=== PATIENT | male | born 1945 | race Caucasian/White ===

== ENCOUNTER → 2016-09-09 | Outpatient (CLI) | payer MEDICARE, MEDICAID ==
[2016-09-09 17:09] LABS: Basophils % (A) 1 %; CH 31.6; CHCM 35.2; Eosinophils # (A) 0.2 k/uL (0-0.7); Eosinophils % (A) 3 %; HCT 47.1 % (39.0-53.0); HDW 2.84; HGB 16.5 gm/dL (13.0-17.5); Luc # (Auto) 0.18; Luc % (Auto) 2; Lymphocytes # (A) 2.6 k/uL (1.0-4.8); Lymphocytes % (A) 35 %; MCH 31.6 pg (25.0-35.0); MCV 90.3 fL (80.0-100.0); Mean Platelet Volume 6.7; Monocytes # (A) 0.5 k/uL (0-1.0); Monocytes % (A) 6 %; Neutrophils % (A) 54 %; RBC 5.22 m/uL (4.30-5.90); RDW 13.9 % (11.5-15.5); WBC 7.5 k/uL (3.8-10.6); WBC (Perox) 7.53
[2016-09-09 17:24] LABS: ALT 47 U/L (21-72); AST 31 U/L (17-59); Alkaline Phosphatase 58 U/L (38-126); Anion Gap 11 mmol/L; Blood Urea Nitrogen 20 mg/dL (9-20); Calcium 9.8 mg/dL (8.4-10.2); Carbon Dioxide 26 mmol/L (22-30); Chloride 105 mmol/L (98-107); Cholesterol 157 mg/dL (<200); Glucose 89 mg/dL (74-99); HDL Cholesterol 81 mg/dL (40-60); Non-African American GFR(MDRD) >60 (>60 ml/min/1.73 sqM); Potassium 4.1 mmol/L (3.5-5.1); Sodium 142 mmol/L (137-145); Total Bilirubin 1.2 mg/dL (0.2-1.3); Total Protein 7.1 g/dL (6.3-8.2); Triglycerides 63 mg/dL (<150); Uric Acid 5.3 mg/dL (3.5-8.5)
== END | disposition home or self-care (01) ==
LOC: LABWHC1 16:28
PROVIDERS: ATTEND Internal Medicine
DX: E78.5 Hyperlipidemia, unspecified (principal); I10 Essential (primary) hypertension; M10.9 Gout, unspecified
CPT/HCPCS: 84439; 80061; 80053; 84443; 84550; 85025; 36415; G0103; 99214

== ENCOUNTER → 2016-12-24 | Outpatient (CLI) | payer MEDICARE, MEDICAID ==
[2016-12-24 15:49] LABS: Basophils # (A) 0.1 k/uL (0-0.2); Basophils % (A) 1 %; Eosinophils # (A) 0.2 k/uL (0-0.7); Eosinophils % (A) 3 %; HCT 48.7 % (39.0-53.0); HDW 2.61; HGB 16.5 gm/dL (13.0-17.5); Luc # (Auto) 0.12; Luc % (Auto) 2; Lymphocytes # (A) 2.5 k/uL (1.0-4.8); Lymphocytes % (A) 31 %; MCH 31.2 pg (25.0-35.0); MCHC 33.9 g/dL (31.0-37.0); MCV 91.9 fL (80.0-100.0); Mean Platelet Volume 7.3; Monocytes # (A) 0.5 k/uL (0-1.0); Monocytes % (A) 6 %; Neutrophils # (A) 4.8 k/uL (1.3-7.7); Neutrophils % (A) 59 %; RDW 14.5 % (11.5-15.5); WBC 8.1 k/uL (3.8-10.6); WBC (Perox) 8.11
[2016-12-24 16:08] LABS: ALT 52 U/L (21-72); AST 30 U/L (17-59); Alkaline Phosphatase 69 U/L (38-126); Amylase 42 U/L (30-110); Anion Gap 14 mmol/L; Blood Urea Nitrogen 29 mg/dL (9-20); Calcium 10.2 mg/dL (8.4-10.2); Carbon Dioxide 23 mmol/L (22-30); Chloride 106 mmol/L (98-107); Creatine Kinase 181 U/L (55-170); Glucose 93 mg/dL (74-99); Non-African American GFR(MDRD) >60 (>60 ml/min/1.73 sqM); Potassium 4.1 mmol/L (3.5-5.1); Sodium 143 mmol/L (137-145); Total Protein 7.6 g/dL (6.3-8.2)
[2016-12-24 16:18] LABS: Troponin I <0.012 ng/mL (0.000-0.034)
[2016-12-24 16:20] LABS: Creatine Kinase MB 2.9 ng/mL (0.0-2.4)
== END | disposition home or self-care (01) ==
LOC: LABWHC1 15:27
PROVIDERS: ATTEND Internal Medicine
DX: R07.9 Chest pain, unspecified (principal); R10.9 Unspecified abdominal pain
CPT/HCPCS: 36415; 80053; 82150; 82550; 82553; 83690; 84484; 85025

== ENCOUNTER 2017-01-07 08:34 | Day surgery (SDC) | payer MEDICARE, MEDICAID ==
[2017-01-06 11:24] VITALS: BMI 28.8
[~2017-01-07 08:34] MED LIST: LACTATED RINGERS 1,000 ML IV SCH
[2017-01-07 09:10] VITALS: RESP 16; TEMP 97.7
[2017-01-07] MEDS ORDERED: LIDOCAINE 1% 20 ML VIAL (10MG/ML) FOR IV START INTRADERMA ONE (09:22)
[2017-01-07] MEDS ORDERED: PROPOFOL 10 MG/ML 20 ML VIAL IV ONE (09:33)
[2017-01-07] MEDS ORDERED: LIDOCAINE 1% INJ 10MG/ML (20 ML MDV) ONE (09:33)
--- NOTE | 2017-01-07 10:43 | P.PCN ---
Date of Procedure: 01/07/17 Preoperative Diagnosis: Postoperative Diagnosis: Procedure(s) Performed: Procedure: Esophagogastroduodenoscopy and biopsy. Preoperative diagnosis: Chronic reflux symptoms and abdominal pressure. Postoperative diagnosis: 1. Small sliding hiatal hernia with no obvious esophagitis or complicated reflux disease. 2. Mild antral gastritis with a few diminutive polyps in the gastric body consistent with hyperplastic polyps. 3. No duodenal ulcers or gastric outlet obstruction. 4. Biopsies obtained from the duodenum, antrum, gastric body polyps and esophagus. Preparation and sedation: Was provided by anesthesia. Brief clinical history: The patient is a 71-year-old male who is referred for this evaluation because of epigastric discomfort and reflux that has not responded to acid suppressive therapy. He has also been having, for the last year, abdominal discomfort, bloating and pressure sensation. No weight loss, bleeding or other alarm symptoms. The patient had colonoscopy with me 6 or 7 years ago. This evaluation is to assess for peptic ulcer disease, complicated reflux disease or other pathology. Procedure: With the patient on his left lateral decubitus position and after informed consent and adequate sedation, I passed the Olympus-GIF 160 video upper endoscope through the cricopharyngeus down the esophagus. GE junction was around 38 cm from the incisors and there was a small sliding hiatal hernia between 1-2 cm. The esophagus did not show any erosions, ulcers, strictures or Pierson's esophagus. The endoscope was then passed into the stomach which was insufflated with air and inspected in detail including the retroflexion in the cardia. There was a diminutive polyp scattered in the gastric body consistent with regenerative/hyperplastic polyps. There was some mottling and erythema in the antrum but no ulcers or erosions. Pyloric channel, duodenal bulb, post bulbar area and descending duodenum appeared within normal limits. I obtained biopsies from the duodenum, antrum, gastric body polyps and esophagus before the endoscope was withdrawn. The patient tolerated the procedure well. Plan: The patient was reassured. Will await biopsy results. He will follow up with you as planned and further plans can be made based on his course and biopsy results. I will be happy to see in the office if his symptoms persist. Implants: Indications for Procedure: Operative Findings: Description of Procedure:
[2017-01-07 10:51] VITALS: BP 115/66; PULSE 60
== END 2017-01-07 10:52 | disposition home or self-care (01) ==
LOC: ORWHC2ENDO 08:34
DX: K29.50 Unspecified chronic gastritis without bleeding (principal); K44.9 Diaphragmatic hernia without obstruction or gangrene; K31.7 Polyp of stomach and duodenum; K21.9 Gastro-esophageal reflux disease without esophagitis; I10 Essential (primary) hypertension; E78.5 Hyperlipidemia, unspecified; J45.909 Unspecified asthma, uncomplicated; Z79.51 Long term (current) use of inhaled steroids; Z79.899 Other long term (current) drug therapy; Z91.041 Radiographic dye allergy status
CPT/HCPCS: 88305; 88342; 43239; J2001; J2704

== ENCOUNTER → 2017-11-30 | Outpatient (CLI) | payer MEDICARE, MEDICAID ==
[2017-11-30 10:14] LABS: Basophils % (A) 0 %; Eosinophils # (A) 0.2 k/uL (0-0.7); Eosinophils % (A) 4 %; HCT 46.7 % (39.0-53.0); HGB 16.1 gm/dL (13.0-17.5); Lymphocytes # (A) 2.4 k/uL (1.0-4.8); Lymphocytes % (A) 34 %; MCH 30.9 pg (25.0-35.0); MCHC 34.5 g/dL (31.0-37.0); MCV 89.6 fL (80.0-100.0); Monocytes # (A) 0.5 k/uL (0-1.0); Monocytes % (A) 7 %; Neutrophils # (A) 3.7 k/uL (1.3-7.7); Neutrophils % (A) 54 %; Platelet Count 225 k/uL (150-450); RBC 5.21 m/uL (4.30-5.90); RDW 13.8 % (11.5-15.5); WBC 6.9 k/uL (3.8-10.6)
[2017-11-30 12:03] LABS: Albumin 4.5 g/dL (3.5-5.0); Calcium 9.8 mg/dL (8.4-10.2); Potassium 4.4 mmol/L (3.5-5.1); Total Bilirubin 0.8 mg/dL (0.2-1.3); Total Protein 7.2 g/dL (6.3-8.2)
[2017-11-30 12:19] LABS: T4, Free (Free Thyroxine) 0.91 ng/dL (0.78-2.19)
[2017-11-30 12:33] LABS: PSA Annual Screen 2.27 ng/mL (0.00-4.00)
== END | disposition home or self-care (01) ==
LOC: LABWHC1 09:49
PROVIDERS: ATTEND Internal Medicine
DX: Z00.00 Encounter for general adult medical examination without abnormal findings (principal); E55.9 Vitamin D deficiency, unspecified; Z12.5 Encounter for screening for malignant neoplasm of prostate
CPT/HCPCS: 84439; 80061; 80053; 84443; 85025; 82306; 36415; G0103

== ENCOUNTER → 2018-11-07 | Outpatient (CLI) | payer MEDICARE, MEDICAID ==
[2018-11-07 09:34] LABS: Basophils % (A) 1 %; Eosinophils # (A) 0.2 k/uL (0-0.7); Eosinophils % (A) 3 %; HCT 48.2 % (39.0-53.0); HGB 16.1 gm/dL (13.0-17.5); Lymphocytes # (A) 2.5 k/uL (1.0-4.8); Lymphocytes % (A) 36 %; MCH 30.1 pg (25.0-35.0); MCHC 33.4 g/dL (31.0-37.0); MCV 90.2 fL (80.0-100.0); Monocytes # (A) 0.4 k/uL (0-1.0); Monocytes % (A) 6 %; Neutrophils # (A) 3.6 k/uL (1.3-7.7); Neutrophils % (A) 52 %; Platelet Count 254 k/uL (150-450); RBC 5.35 m/uL (4.30-5.90); WBC 6.9 k/uL (3.8-10.6)
[2018-11-07 16:18] LABS: African American GFR (CKD) 70.1 (60.0-200.0); Albumin 4.8 g/dL (3.80-4.90); Albumin/Globulin Ratio 2.4 (1.60-3.17); Anion Gap 7.5 mmol/L (4.00-12.00); BUN/Creat Ratio 23.33 Ratio (12.00-20.00); Calcium 10.3 mg/dL (8.7-10.3); Carbon Dioxide 27.5 mmol/L (21.6-31.8); LDL Cholesterol,Calculated 97.4 mg/dL (0.0-131.0); Potassium 4.1 mmol/L (3.5-5.5); Total Bilirubin 1.1 mg/dL (0.2-1.2); Total Protein 6.8 g/dL (6.2-8.2); Uric Acid 5.6 mg/dL (3.7-8.7); VLDL Calculation 17.6 mg/dL (5.00-40.00)
== END | disposition home or self-care (01) ==
LOC: LABWHC1 08:11
PROVIDERS: ATTEND Internal Medicine
DX: Z00.00 Encounter for general adult medical examination without abnormal findings (principal); E78.5 Hyperlipidemia, unspecified; I10 Essential (primary) hypertension; Z12.5 Encounter for screening for malignant neoplasm of prostate
CPT/HCPCS: 84439; 80061; 80053; 84443; 84550; 85025; 36415; G0103

== ENCOUNTER → 2018-11-07 | Outpatient (CLI) | payer MEDICARE, MEDICAID | END | disposition home or self-care (01) | LOC: LABPAT 08:08 | PROVIDERS: ATTEND Orthopaedic Surgery | DX: Z53.9 Procedure and treatment not carried out, unspecified reason (principal) ==

== ENCOUNTER 2018-12-01 10:42 | Day surgery (SDC) | payer MEDICARE, MEDICAID ==
[2018-11-29 14:38] VITALS: BMI 28.0
--- NOTE | 2018-11-30 17:32 | HP ---
HISTORY AND PHYSICAL REASON FOR ADMISSION: Surgery scheduled for 12/01/2018 HISTORY: Raj Lainez is a 73-year-old patient seen with progressive left knee pain. Treatment options were discussed with him. He elected to proceed with left knee arthroscopy. Consent was obtained. PAST MEDICAL HISTORY: Asthma, hypertension, hyperlipidemia and gout. PAST SURGICAL HISTORY: Herniorrhaphy. MEDICATIONS: Allopurinol, pantoprazole, Advair, amlodipine, Losartan, lovastatin. ALLERGIES: IODINE. SOCIAL HISTORY: Denies current tobacco use. PHYSICAL EXAMINATION: Evaluation of the left knee is range of motion is 0 to 130 degrees. There is a mild effusion. There is tenderness along the medial and lateral joint lines. Positive medial Michael's. Positive lateral Michael's. Ligaments stable. Hip rotation without pain. Distal neurovascular exam intact. RADIOGRAPHS: Radiographs of the left knee revealed moderate osteoarthritic changes. IMPRESSION: 1. Internal derangement, left knee with meniscal tear. 2. Left knee osteoarthritis. 3. Hypertension. 4. Hyperlipidemia. PLAN: Left knee arthroscopy with partial meniscectomy and debridement. Surgery scheduled for 12/01/2018. MMODL / IJN: [id number] /
[~2018-12-01 10:42] MED LIST changes: +LIDOCAINE 1% 20 ML VIAL (10MG/ML) FOR IV START INTRADERMA PRN; +ceFAZolin IN SWFI 2 GM/20 ML SYRINGE IVP ONE
[2018-12-01] MEDS: ONDANSETRON 4 MG/2 ML VIAL IVP PRN ×2 (11:11→14:00)
[2018-12-01] MEDS ORDERED: DEXAMETHASONE SOD PHOSPHATE 10 MG/ML 1 ML VIAL IV ONE (11:19)
[2018-12-01] MEDS ORDERED: MIDAZOLAM (PF) 2 MG/2 ML VIAL IV ONE (11:42)
[2018-12-01] MEDS ORDERED: PROPOFOL 10 MG/ML 20 ML VIAL IV ONE (13:00)
[2018-12-01] MEDS ORDERED: fentaNYL (PF) 50 MCG/ML 2 ML AMP ONE (13:00)
[2018-12-01] MEDS ORDERED: HYDROmorphone (PF) 1 MG/ML ONE (13:00)
[2018-12-01] MEDS ORDERED: LIDOCAINE 1% INJ 10MG/ML (20 ML MDV) ONE (13:00)
[2018-12-01] MEDS ORDERED: SUCCINYLCHOLINE CHLORIDE 100 MG/5 ML SYR IV ONE (13:00)
[2018-12-01] MEDS ORDERED: BUPIVACAINE (PF) 0.25% 30 ML VIAL INTRAARTIC ONE (13:31)
[2018-12-01 13:55] VITALS: TEMP 98.3
--- NOTE | 2018-12-01 13:59 | P.OP ---
Date of Procedure: 12/01/18 Preoperative Diagnosis: Internal derangement left knee Postoperative Diagnosis: 1. Tear medial meniscus left knee 2. Grade 4 chondromalacia medial femoral condyle left knee 3. Reactive synovitis medial, lateral and suprapatellar compartments left knee Procedure(s) Performed: 1. Arthroscopic partial medial meniscectomy left knee 2. Arthroscopic chondroplasty medial femoral condyle left knee 3. Arthroscopic partial synovectomy medial, lateral and suprapatellar compartments left knee Anesthesia: NATHALIAA, local Surgeon: Hitesh Huerta Estimated Blood Loss (ml): 7 Pathology: none sent Condition: stable Disposition: PACU Indications for Procedure: 73-year-old patient seen with progressive left knee pain. After treatment options were discussed with him, he elected to proceed with arthroscopy. Operative Findings: see description of procedure Description of Procedure: Patient was taken to the operative suite. Patient underwent a general anesthetic by the department of anesthesia. Patient was given preoperative antibiotics. The left lower extremity was placed in a well-padded arthroscopic leg oliva. The left leg was prepped and draped in the normal sterile orthopedic fashion. A lateral parapatellar and suprapatellar incision was made. Trochars were inserted. Arthroscopy was initiated. Suprapatellar pouch revealed diffuse thick reactive synovitis. The patellofemoral joint appeared to articulate congruently. There was grade 1 chondromalacia of the patellofemoral joint. The scope was guided into the medial gutter. No loose bodies or plica were identified. The scope was then guided into the medial compartment. A medial parapatellar incision was made. Trocar inserted followed by probe. There was a radial tear posterior horn medial meniscus. There were grade 4 chondromalacia changes of the femoral condyle and tibial plateau with areas of exposed bone involving both the medial femoral condyle and tibial plateau. There was thick reactive synovitis anteriorly. I performed a partial medial meniscectomy down to stable tissue. I performed a chondroplasty of the medial femoral condyle. I performed a partial synovectomy decompressing the reactive synovitis. The residual meniscus was stable. There was good decompression of the synovitis. Scope and probe were then guided into the intercondylar notch. Cruciates were identified, probed and found to be stable. The scope and probe were then guided into lateral compartment. There was some mild superficial fraying midbody lateral meniscus. There were grade 1, she changes lateral compartment. There was thick reactive synovitis anteriorly. I performed a partial synovectomy decompressing reactive synovitis. I debrided the mild fraying of the lateral meniscus. There was good decompression of synovitis. The scope was in guided back into the suprapatellar compartment. I introduced a motorized shaver into the super compartment. I debrided some piecemeal fragments of meniscus I encountered. I performed a partial synovectomy decompressing the reactive synovitis. The shaver was removed. I took one more look on the entire knee, no residual debris. Instruments were now removed from the joint. The joint was infiltrated with .25% Marcaine. Steri-Strips were applied to the portal sites. Sterile dressings were applied. The patient was placed into a RUPINDER hose. No tourniquet was utilized. The patient was awakened, transferred to a bed and taken to recovery stable satisfactory condition.
[2018-12-01] MEDS: HYDROmorphone 0.5 MG/0.5 ML SYRINGE IVP PRN ×4 (14:00→14:21)
[2018-12-01 15:43] VITALS: RESP 18
[2018-12-01 16:09] VITALS: BP 118/65; PULSE 86
== END 2018-12-01 17:05 | disposition home or self-care (01) ==
LOC: OR 10:42
PROVIDERS: ATTEND Orthopaedic Surgery
DX: S83.242A Other tear of medial meniscus, current injury, left knee, initial encounter (principal); X58.XXXA Exposure to other specified factors, initial encounter; M94.262 Chondromalacia, left knee; M65.862 Other synovitis and tenosynovitis, left lower leg; J45.909 Unspecified asthma, uncomplicated; I10 Essential (primary) hypertension; K21.9 Gastro-esophageal reflux disease without esophagitis; E78.5 Hyperlipidemia, unspecified; M10.9 Gout, unspecified; Z79.51 Long term (current) use of inhaled steroids; Z79.899 Other long term (current) drug therapy; Z91.048 Other nonmedicinal substance allergy status
CPT/HCPCS: 29881; 29876; J1100; J2405; J2001; J3010; J1170 ×2; J0330; J2704; J0690; J2250

== ENCOUNTER → 2019-01-24 | Outpatient (CLI) | payer MEDICARE, MEDICAID ==
[2019-01-24 14:35] LABS: INR 0.9 (<1.2); Partial Thromboplastin Time 25.6 sec (22.0-30.0); Prothrombin Time 9.9 sec (9.0-12.0)
[2019-01-24 14:36] LABS: Basophils # (A) 0.1 k/uL (0-0.2); Basophils % (A) 1 %; Eosinophils # (A) 0.2 k/uL (0-0.7); Eosinophils % (A) 2 %; HCT 48.7 % (39.0-53.0); HGB 16.5 gm/dL (13.0-17.5); Lymphocytes # (A) 2.6 k/uL (1.0-4.8); Lymphocytes % (A) 28 %; MCHC 33.9 g/dL (31.0-37.0); MCV 91.5 fL (80.0-100.0); Mean Platelet Volume 7.1; Monocytes # (A) 0.5 k/uL (0-1.0); Monocytes % (A) 6 %; Neutrophils # (A) 5.8 k/uL (1.3-7.7); Neutrophils % (A) 62 %; Platelet Count 277 k/uL (150-450); RBC 5.32 m/uL (4.30-5.90); RDW 15.7 % (11.5-15.5); WBC 9.3 k/uL (3.8-10.6)
[2019-01-24 14:38] LABS: Potassium 3.9 mmol/L (3.5-5.1)
== END | disposition home or self-care (01) ==
LOC: LABPAT 13:36
PROVIDERS: ATTEND Orthopaedic Surgery
DX: Z01.812 Encounter for preprocedural laboratory examination (principal); M17.12 Unilateral primary osteoarthritis, left knee
CPT/HCPCS: 36415; 80051; 85025; 85610; 85730; 87070

== ENCOUNTER 2019-01-30 08:31 | Day surgery (SDC) | payer MEDICARE, MEDICAID ==
[2019-01-25 11:45] VITALS: BMI 29.5
--- NOTE | 2019-01-29 14:30 | HP ---
HISTORY AND PHYSICAL REASON FOR ADMISSION: Surgery scheduled for 01/30/2019 Raj Lainez is a 73-year-old patient seen with symptomatic left knee osteoarthritis. After treatment options were discussed with him, he elected to proceed with left total knee arthroplasty. Consent was obtained. Cardiac clearance was obtained by Dr. Urbina. Medical clearance had been provided by Dr. Varela. PAST MEDICAL HISTORY: Hypertension, hyperlipidemia, asthma, gastroesophageal reflux disease. PAST SURGICAL HISTORY: Left knee arthroscopy, herniorrhaphy. MEDICATIONS: Advair, amlodipine, losartan, lovastatin. ALLERGIES: IODINE. SOCIAL HISTORY: He denies tobacco use. PHYSICAL EXAMINATION: Evaluation of the left knee: His range of motion is -3 to 115. There is a moderate effusion present. There is crepitus along the medial and patellofemoral compartments range of motion. Ligaments are stable. Hip rotation is without pain. His distal neurovascular exam is intact. RADIOGRAPHS: Of his left knee reveal severe medial compartment osteoarthritis. IMPRESSION: 1. Left knee osteoarthritis. 2. Hyperlipidemia. 3. Hypertension. 4. Asthma. PLAN: Left total knee arthroplasty. Surgery scheduled for 01/30/2019. MMODL / IJN: [id number] /
[~2019-01-30 08:31] MED LIST changes: +ACETAMINOPHEN TAB 500 MG TAB PO ONE; +DEXAMETHASONE SOD PHOSPHATE 10 MG/ML 1 ML VIAL IV ONE; +HYDROmorphone 0.5 MG/0.5 ML SYRINGE IVP PRN; -LACTATED RINGERS 1,000 ML IV SCH; -LIDOCAINE 1% 20 ML VIAL (10MG/ML) FOR IV START INTRADERMA PRN; +MELOXICAM 7.5 MG TAB PO ONE; +MIDAZOLAM 2 MG/2 ML VIAL IV PRN; +ONDANSETRON 4 MG/2 ML VIAL IVP ONE; +ROPIVACAINE 246.25 MG, EPINEPHrine 0.5 MG, KETOROLAC 30 MG, cloNIDine HCL/PF 80 MCG, WA... MISCELLANE ONE; +TRANEXAMIC ACID 1,000 MG in SODIUM CHLORIDE 0.9% 100 ML IVPB ONE; -ceFAZolin IN SWFI 2 GM/20 ML SYRINGE IVP ONE
[2019-01-30] MEDS: LACTATED RINGERS 1,000 ML IV SCH ×2 (09:29→16:57)
[2019-01-30] MEDS ORDERED: ROPIVACAINE 0.2%-NS ON-Q PUMP 1,090 MG, EMPTY PAIN BALL 1 EACH MISCELLANE PRN (09:33)
--- NOTE | 2019-01-30 09:35 | P.ANPRN ---
Procedure Note - Anesthesia - Nerve Block Performed Left Adductor Canal Infusion Time Out Performed: Yes Date of Procedure: 01/30/19 Procedure Start Time: : Procedure Stop Time: : Location of Patient Procedure: PreOp Indication: Acute Post-Operative Pain, Requested by Surgeon Sedation Type: Sedate with meaningful contact maintained Preparation: Sterile Prep, Sterile Dressing Position: Supine Catheter: Indwelling Needle Types: Pajunk Needle Gauge: 21 Ultrasound used to visualize needle placement: Yes Injectate: 0.5% Ropivacaine (see comment for volume) (ropi .5% 20cc) Blood Aspirated: No Pain Paresthesia on Injection Noted: No Resistance on Injection: Normal Image Stored and Saved: Yes Events: Uneventful and Well Tolerated
[2019-01-30] MEDS ORDERED: fentaNYL (PF) 50 MCG/ML 2 ML AMP ONE (09:42)
[2019-01-30] MEDS: fentaNYL (PF) 50 MCG/ML 2 ML AMP IV ONE ×5 (09:42→14:10)
[2019-01-30] MEDS ORDERED: MIDAZOLAM 2 MG/2 ML VIAL ONE (09:42)
[2019-01-30] MEDS ORDERED: TRANEXAMIC ACID 1,000 MG/10 ML VIAL ONE (09:42)
[2019-01-30] MEDS ORDERED: PROPOFOL 10 MG/ML 20 ML VIAL IV ONE (09:42)
[2019-01-30] MEDS ORDERED: SODIUM CHLORIDE 0.9% 100 ML BAG ONE (09:42)
[2019-01-30] MEDS ORDERED: ceFAZolin 3,000 MG in SODIUM CHLORIDE 0.9% IRRIGATIO 3,000 ML IRRIGATION ONE (09:47)
[2019-01-30] MEDS ORDERED: LACTATED RINGERS 1,000 ML IV ONE (11:23)
[2019-01-30] MEDS ORDERED: HYDROmorphone 1 MG/ML 1 ML SYRINGE IVP PRN (11:42)
[2019-01-30] MEDS ORDERED: HYDROcodone/APAP 5-325MG 1 EACH TAB PO PRN (11:42)
[2019-01-30] MEDS ORDERED: NALOXONE 0.4 MG/ML 1 ML VIAL IV PRN (11:42)
[2019-01-30] MEDS ORDERED: traMADol 50 MG TAB PO PRN (11:42)
[2019-01-30] MEDS ORDERED: ONDANSETRON 4 MG/2 ML VIAL IVP PRN (11:42)
[2019-01-30] MEDS ORDERED: HYDROmorphone 0.5 MG/0.5 ML SYRINGE IVP PRN ×2 (11:42)
--- NOTE | 2019-01-30 11:42 | P.OP ---
Date of Procedure: 01/30/19 Preoperative Diagnosis: Left knee osteoarthritis Postoperative Diagnosis: Left knee osteoarthritis Procedure(s) Performed: Left total knee arthroplasty Implants: 1. Depuy attune size 7 left cruciate-retaining cemented femur 2. Depuy attune size 7 fixed bearing cemented tibial baseplate 3. Depuy attune size 7 fixed bearing 10 mm polyethylene tibial insert 4. Depuy attune 38 mm all polyethylene cemented patella Anesthesia: regional (Adductor canal catheter), local, spinal Surgeon: Hitesh Huerta Estimated Blood Loss (ml): 35 Pathology: other (Bone) Condition: stable Disposition: PACU Indications for Procedure: 73-year-old patient seen with symptomatic left knee osteoarthritis. After treatment options were discussed, he elected to proceed with total knee arthroplasty. Operative Findings: See description of procedure Description of Procedure: Patient was taken to the operative suite after having an adductor canal catheter placed by the department of anesthesia for postoperative pain management. Patient underwent a spinal anesthetic by the department of anesthesia. Patient was given preoperative IV intake antibiotics and TXA. A well-padded tourniquet was placed about the left lower extremity. The lower extremity was then prepped and draped in the normal sterile orthopedic fashion. The extremity was elevated, a tourniquet was insufflated to 300. A standard anterior incision was made sharply through skin. Dissection was taken down through the subcutaneous soft tissues down to the extensor mechanism. A medial arthrotomy was performed, patella was everted and knee was flexed. There was advanced osteoarthritis noted. I introduced my distal intramedullary femoral drill. I then introduced the distal femoral cutting jig. My medical research assistant secured the cutting jig with 2 pins. I held retractors in position while my medical research assistant performed the distal femoral resection through the guide area we now removed her distal femoral cutting guide. We now placed our 4-in-1 femoral cutting block and positioned and it was secured with 2 pins by medical research assistant while I held the block in position. The distal femoral finishing was now completed. A proximal tibial cutting guide was positioned. I held the guide in the appropriate position with both hands well Gomez AGUIRRE inserted stabilizing pins into the guide. Proximal tibial cut was made. We now placed a trial femoral component into position, along with an appropriate size tibial tray and insert. We now took the knee through range of motion and had full extension good flexion and good overall soft tissue balance noted. The patella was everted and stabilized with 2 towel clips held by my medical research assistant while I performed a flush with patellar quad tendon utilizing a fresh sawblade. We templated the patella, appropriate drill holes were made. An appropriate trial patella was positioned, knee was taken through full range of motion with the patella tracking very nicely. The trial patella was removed. Drill holes were made through the femoral component. All trial components were removed after marking off the appropriate rotation of the tibia. Retractors were now positioned along the proximal tibia. An appropriate keel punch was made with the appropriate size tibial guide by myself on ( assisted by holding retractors. At this point appropriate size implants were chosen and opened. The joint was irrigated copiously with pulse lavage mechanical irrigation. The posterior capsule was infiltrated with local analgesic. The wound was irrigated with pulse lavage mechanical irrigation. We mixed antibiotic me thylmethacrylate. We placed the knee into flexion. We placed multiple retractors assisted by Gomez AGUIRRE to expose the proximal tibia. Once the methyl methacrylate was ready, the tibial component was cemented into place removing any excess methylmethacrylate form by both myself and my medical research assistant. The femoral component was cemented into place removing the removing any excess methylmethacrylate performed by both myself and my medical research assistant. We then inserted the appropriate size polyethylene tibial insert. We made sure that it was locked into position. We took the knee into full extension, and then back in a flexion making sure we had removed any excess methylmethacrylate. The patellar component was then cemented down and secured with clamp. Excess methylmethacrylate removed. We kept the knee in full extension, patellar clamp in position until methylmethacrylate had hardened. Once it had hardened the patellar clamp was removed. The knee was taken through full range of motion. T he patella tracked nicely. There was good soft tissue balancing. The tourniquet was now released. Additional hemostasis was achieved via electrocautery. A second gram of TXA was given. The wound again was irrigated with pulse lavage mechanical irrigation. The superficial soft tissues were infiltrated local analgesic. The extensor mechanism was repaired with Vicryl. We checked the repair with range of motion and it was stable. The subcutaneous soft tissues were repaired with Vicryl in layers. The skin was approximated with pernio/Dermabond. Sterile dressings were applied followed by loose web roll and Antonino bandage. The patient was transferred to a bed, and taken to recovery in stable and satisfactory condition.
[2019-01-30] MEDS: MEPERIDINE 50 MG/ML SYRINGE IVP ONE ×2 (12:12→12:20)
--- NOTE | 2019-01-30 12:15 | XR ---
EXAMINATION TYPE: XR knee limited LT DATE OF EXAM: 01/30/2019 COMPARISON: NONE TECHNIQUE: Two views submitted HISTORY: Post op FINDINGS: There is a prosthetic knee in near anatomic alignment. There is soft tissue edema and emphysema. IMPRESSION: 1. Postoperative change. Appears in near-anatomic alignment
[2019-01-30] MEDS: diphenhydrAMINE 50 MG/ML 1 ML VIAL IVP ONE ×2 (12:30→13:17)
[2019-01-30] MEDS ORDERED: HYDROcodone/APAP 7.5-325MG 1 EACH TAB PO PRN (15:09)
--- NOTE | 2019-01-30 17:06 | P.CNPUL ---
History of Present Illness Consult date: 01/30/19 Reason for consult: asthma, other (Patient is status post left total knee arthroplasty, history of asthma and hypertension.) Chief complaint: Left knee pain History of present illness: This is a 73-year-old white male, familiar to my service, patient is known to have history of mild intermittent asthma, hypertension, dyslipidemia, and history of osteoarthritis. Patient has been complaining of left knee pain and discomfort for a long time. Seen recently by Dr. Huerta, and he was advised to undergo left total knee arthroplasty. The surgery was done today, and postoperatively I was asked to see him on consultation. Patient was cleared by me prior to his surgery he was also cleared by cardiology. After surgery the patient seems to be quite asymptomatic except for postoperative pain. Denies any cough, no wheezing, no shortness of breath, no chest pain. No nausea no vomiting no abdominal pain. Previous echocardiogram in the last 2 years showed mild mitral regurgitation and mild tricuspid regurgitation, and he had normal ejection fraction. Recent EKG at the marketing services coordinator's office showed a right bundle branch block and left anterior fascicular block, sinus rhythm. Review of Systems Constitutional: No fever no chills no weight loss. Cardiac: No chest pain no palpitations no syncope no diaphoresis. Pulmonary: No shortness of breath cough or wheezing rarely uses rescue inhaler patient is maintained on Advair. GI: Denies any nausea vomiting abdominal pain melena or hematemesis Genitourinary denies any dysuria frequency urgency or hematuria. Musculoskeletal most's symptoms of degenerative joint disease affecting the left knee. Neurologic: Denies any headache blurred vision or dizziness Endocrine: Denies any heat or cold intolerance denies any symptoms of diabetes Hematologic: Denies any clotting bleeding or bruising Skin: Denies any rashes or pruritus Psychiatric: Denies any symptoms of active depression. Past Medical History Past Medical History: Asthma, GERD/Reflux, Hyperlipidemia, Hypertension Additional Past Medical History / Comment(s): RBBB, hx kidney stones, worsening GERD w/cough History of Any Multi-Drug Resistant Organisms: None Reported Past Surgical History: Hernia Repair, Orthopedic Surgery Additional Past Surgical History / Comment(s): rt shoulder surg., great toe surg.arthroscopy lt knee Past Anesthesia/Blood Transfusion Reactions: No Reported Reaction Smoking Status: Never smoker - Past Family History Mother Family Medical History: No Reported History Medications and Allergies Home Medications Medication Instructions Recorded Confirmed Type Allopurinol [Zyloprim] 300 mg PO DAILY 01/06/17 01/25/19 History Aspirin 81 mg PO DAILY 01/06/17 01/25/19 History Cholecalciferol [Vitamin D3] 1,000 unit PO DAILY 01/06/17 01/30/19 History Losartan/Hydrochlorothiazide 1 each PO QAM 01/06/17 01/25/19 History [Losartan-Hctz 100-25 mg Tab] Lovastatin [Mevacor] 40 mg PO HS 01/06/17 01/25/19 History Multivitamin [Men's Multi-Vitamin] 1 each PO DAILY 01/06/17 01/25/19 History Pantoprazole Sodium [Protonix] 40 mg PO QAM 01/06/17 01/25/19 History Terazosin [Hytrin] 2 mg PO HS 01/06/17 01/25/19 History amLODIPine [Norvasc] 10 mg PO QAM 01/06/17 01/25/19 History Fluticasone/Salmeterol [Advair 1 inhalation PO BID 11/29/18 01/30/19 History 100-50 Diskus] HYDROcodone/APAP 7.5-325MG [[place] 1 each PO Q6HR PRN #28 tab 12/01/18 01/30/19 Rx 7.5-325] Allergies Allergy/AdvReac Type Severity Reaction Status Date / Time Iodinated Contrast- Oral and Allergy Dyspnea,hiv Verified 01/25/19 11:36 IV Dye es Physical Exam Vitals: Vital Signs Temp Pulse Pulse Resp BP BP Pulse Ox 01/30/19 14:45 97.8 F 76 16 117/71 91 L 01/30/19 14:00 81 16 117/65 97 01/30/19 13:45 83 16 118/67 96 01/30/19 13:30 83 16 119/67 96 01/30/19 13:15 76 16 118/65 96 01/30/19 12:54 77 16 108/60 96 01/30/19 12:39 74 16 125/76 99 01/30/19 12:24 78 16 120/63 99 01/30/19 12:09 72 16 110/59 100 01/30/19 11:49 97.2 F L 68 12 108/59 90 L 01/30/19 08:55 97 F L 71 16 127/77 96 Intake and Output 01/30/19 01/30/19 01/30/19 06:59 14:59 22:59 Intake Total 1801 Output Total 35 Balance 1766 Intake: IV 1801 Output: Estimated Blood Loss 35 Other: Weight 90.265 kg Physical Exam revealed 73-year-old white male in no distress Head: Atraumatic, normocephalic. HEENT:[Neck is supple.] [No neck masses.] [No thyromegaly.] [No JVD.] PERRLA, EOMI, no icterus. Chest: [Clear throughout, no crackles, no rhonchi, no wheezes.] Cardiac Exam: [Normal S1 and S2, no S3 gallop, no murmur.] Abdomen: [Soft, nontender, no megaly, no rebound, no guarding, normal bowel sounds.] Extremities: [No clubbing, no edema, no cyanosis.] Left knee is wrapped with sterile dressing and Antonino wrap Neurological Exam: [No focal neurologic deficit.] Alert and oriented 3, Psychiatric: Normal mood affect and mental status examination. Skin: No rashes. Lymphatics: No lymphadenopathy. Assessment and Plan Assessment: Impression: 1 status post left total knee arthroplasty postoperative day #0. 2 history of mild intermittent asthma, presently asymptomatic 3 history of hypertension patient will be placed back on his usual cardiac meds and blood pressure medication 4 history of GERD patient will be placed on Protonix 5 history of dyslipidemia. 6 previous history of left knee arthroscopy Recommendation: Continue present meds as listed patient is back on his Advair, he will be given albuterol updrafts when necessary, placed back on amlodipine and on losartan as well as Lipitor. Given incentive spirometry. Placed on Lovenox for DVT prophylaxis. Placed on Protonix for his history of GERD and GI prophylaxis. Patient will ambulate early tomorrow, and we'll continue to follow. Time with Patient: Greater than 30
[2019-01-30] MEDS ORDERED: ALBUTEROL NEBULIZED 2.5 MG/3 ML INHALATION PRN (17:07)
[2019-01-30] MEDS: HYDROcodone/APAP 5-325MG 1 EACH TAB PO PRN (19:23)
[2019-01-30] MEDS: SYMBICORT 80-4.5 MCG INHALER INHALATION SCH (20:23)
[2019-01-30] MEDS ORDERED: ATORVASTATIN 10 MG TAB PO SCH (21:00)
[2019-01-30] MEDS ORDERED: DOXAZOSIN 2 MG TAB PO SCH (21:00)
[2019-01-30] MEDS ORDERED: SENNOSIDES-DOCUSATE SODIUM 1 EACH TAB PO SCH (21:00)
[2019-01-30] MEDS: ENOXAPARIN 30 MG/0.3 ML SYRINGE SQ SCH (23:29)
[2019-01-31] MEDS: LACTATED RINGERS 1,000 ML IV SCH ×2 (00:18→03:24)
[2019-01-31] MEDS: HYDROcodone/APAP 5-325MG 1 EACH TAB PO PRN ×2 (01:48→09:58)
--- NOTE | 2019-01-31 07:08 | P.PN ---
Progress Note - Text Progress Note Date: 01/31/19 Postoperative day # 1 status post total knee arthroplasty, under spinal anesthesia, and adductor canal catheter placed for postoperative analgesia, currently at ropivacaine 0.2% 8 mL per hour and continuous infusion, visual analogue scale is 5-6/10, patient using oral pain medication for breakthrough pain. Assessment and plan= Acute postoperative pain, adductor canal catheter for pain control, we'll continue the same management.
[2019-01-31 07:18] LABS: Basophils % (A) 0 %; Eosinophils % (A) 0 %; HCT 38.2 % (39.0-53.0); Lymphocytes # (A) 1.5 k/uL (1.0-4.8); Lymphocytes % (A) 13 %; MCH 31.2 pg (25.0-35.0); MCHC 34.6 g/dL (31.0-37.0); MCV 90.4 fL (80.0-100.0); Monocytes # (A) 0.6 k/uL (0-1.0); Monocytes % (A) 5 %; Neutrophils # (A) 8.9 k/uL (1.3-7.7); Neutrophils % (A) 80 %; Platelet Count 211 k/uL (150-450); RBC 4.22 m/uL (4.30-5.90); RDW 15.5 % (11.5-15.5); WBC 11.2 k/uL (3.8-10.6)
--- NOTE | 2019-01-31 07:29 | P.PN ---
Progress Note - Text Progress Note Date: 01/31/19 Patient seen in bed comfortably. He does report some pain in the left knee area. He has been ambulatory with his walker. Incision appears stable. Homans and Ryan or negative. Distal neurovascular exam is intact. Impression: Status post left total knee arthroplasty Plan: Physical therapy DVT prophylaxis We will plan discharge home today with appropriate instructions
[2019-01-31] MEDS ORDERED: PANTOPRAZOLE 40 MG TABLET PO SCH (07:30)
[2019-01-31 07:37] LABS: HGB 13.2 gm/dL (13.0-17.5)
--- NOTE | 2019-01-31 07:52 | P.DS ---
Providers Date of admission: 01/30/19 Attending physician: Hitesh Huerta Consults: 01/30/19 11:42 Consult Physician Routine Consulting Provider: Mara Varela Reason/Comments: Medical management Do you want consulting provider notified?: Yes Primary care physician: Mara Varela Hospital Course: Date of admission: 01/30/19 Date of discharge: 01/31/19 Admission diagnosis: Left total knee arthroplasty Discharge diagnosis: Left total knee arthroplasty Attending physician: Hitesh Huerta DO Surgical procedure: Left total knee arthroplasty Brief history: Patient is a 73-year-old with a history of symptomatic left knee osteoarthritis. At this point patient has failed outpatient conservative treatment measures and has opted to proceed with an elective total knee arthr oplasty. Hospital course: Details the patient surgery can be found in the operative report. Patient tolerated the procedure well and was subsequently transported to orthopedic floor. Patient orthopedic and medical care was provided daily. Patient had daily laboratory tests performed for evaluation of overall blood counts. Patient had daily physical therapy to include strengthening, range of m otion as well as education with walker ambulation. Patient was treated with Lovenox for the postoperative DVT prophylaxis during there inpatient stay. Patient noted to have a relatively uneventful postoperative course. Patient reported satisfactory pain control with oral pain medication by postoperative day 1. Patient showed satisfactory progress with physical therapy. Patient removed steadily through the program and had no difficulty meeting goals by postop day 1. Given patient's otherwise satisfactory course and having met physical therapy goals, plan is to discharge patient to home on postoperative day 1. Discharge condition/disposition: Patient discharged to home in stable and satisfactory condition. Discharge medications: Patient is prescribed home medications per medicine as well as appropriate oral analgesics and anticoagulants. Discharge instructions: 1. Wound care and infectious precautions, keep incision dry and covered while showering, no lotions, creams, moisturized. No soaking, tubs, pools, hot tubs. Do not scrub over the incision 2. Weight-bear as tolerated with walker/cane until follow-up 3. Ice and elevate when necessary. Do not exceed 20 minutes per hour with ice pack. 4. Utilize compression sleeve until seen first postoperative appointment. 5. Visiting nursing care 6. Home physical therapy including home CPM. 7. Pain meds and anticoagulations per prescription 8. Pain medication has potential to cause constipation. Increase oral fluid and fiber intake. Contact primary care provider if you have not had a bowel movement within 48 hours after discharge. 9. No anti-inflammatory medication until discussed the first postoperative visit, this includes Motrin, Aleve, Mobic, diclofenac. 10. Follow-up in [facility] in 2 weeks with [place] PA-C 11. Follow up with your primary care doctor 7-10 days after discharge. 12. Contact advanced [facility] with any questions, Patient Condition at Discharge: Good Plan - Discharge Summary Discharge Rx Participant: Yes New Discharge Prescriptions: New Aspirin [Adult Low Dose Aspirin EC] 81 mg PO BID #60 tablet. HYDROcodone/APAP 7.5-325MG [[place] 7.5-325] 1 - 2 each PO Q6HR PRN #56 tab PRN Reason: Pain traMADol HCL [Ultram] 50 mg PO Q6HR PRN 7 Days #28 tab PRN Reason: Pain No Action Terazosin [Hytrin] 2 mg PO HS Lovastatin [Mevacor] 40 mg PO HS Cholecalciferol [Vitamin D3] 1,000 unit PO DAILY amLODIPine [Norvasc] 10 mg PO QAM Aspirin 81 mg PO DAILY Allopurinol [Zyloprim] 300 mg PO DAILY Pantoprazole Sodium [Protonix] 40 mg PO QAM Multivitamin [Men's Multi-Vitamin] 1 each PO DAILY Losartan/Hydrochlorothiazide [Losartan-Hctz 100-25 mg Tab] 1 each PO QAM Fluticasone/Salmeterol [Advair 100-50 Diskus] 1 inhalation PO BID HYDROcodone/APAP 7.5-325MG [[place] 7.5-325] 1 each PO Q6HR PRN #28 tab PRN Reason: Pain Discharge Medication List Allopurinol [Zyloprim] 300 mg PO DAILY 01/06/17 [History] Aspirin 81 mg PO DAILY 01/06/17 [History] Cholecalciferol [Vitamin D3] 1,000 unit PO DAILY 01/06/17 [History] Losartan/Hydrochlorothiazide [Losartan-Hctz 100-25 mg Tab] 1 each PO QAM 01/06/17 [History] Lovastatin [Mevacor] 40 mg PO HS 01/06/17 [History] Multivitamin [Men's Multi-Vitamin] 1 each PO DAILY 01/06/17 [History] Pantoprazole Sodium [Protonix] 40 mg PO QAM 01/06/17 [History] Terazosin [Hytrin] 2 mg PO HS 01/06/17 [History] amLODIPine [Norvasc] 10 mg PO QAM 01/06/17 [History] Fluticasone/Salmeterol [Advair 100-50 Diskus] 1 inhalation PO BID 11/29/18 [History] HYDROcodone/APAP 7.5-325MG [[place] 7.5-325] 1 each PO Q6HR PRN #28 tab 12/01/18 [Rx] Aspirin [Adult Low Dose Aspirin EC] 81 mg PO BID #60 tablet. 01/31/19 [Rx] HYDROcodone/APAP 7.5-325MG [[place] 7.5-325] 1 - 2 each PO Q6HR PRN #56 tab 01/31/19 [Rx] traMADol HCL [Ultram] 50 mg PO Q6HR PRN 7 Days #28 tab 01/31/19 [Rx] Follow up Appointment(s)/Referral(s): Hitesh Huerta DO [Doctor of Osteopathic Medicine] - 2 Weeks Activity/Diet/Wound Care/Special Instructions: Orthopedic discharge instructions: 1. Wound care infection precautions keep incision dry and covered while showering, no lotions, creams, moisturizers. No soaking, pools, hot tubs. Do not scrub over incision. 2. Weight-bear [as tolerated] with walker/cane until follow-up 3. Ice and elevate when necessary. Do not exceed 20 minutes per hour with ice pack. 4. Utilize compression sleeve until seen at first follow-up appointment. 5. Pain meds and anticoagulation per prescription. 6. Pain medication is potential to cause constipation. Increase oral fluids and fiber. Contact primary care provider. Has not had a bowel movement within 48 hours of discharge. 7. No anti-inflammatory medication and discussed at first postop visit, this includes Motrin, Aleve, Mobic, diclofenac. 8. Follow up in office at 2 weeks postoperatively with Bradley 9. Follow-up with primary care doctor within 7-10 days after discharge. 10. Contact [facility] with any questions, Discharge Disposition: HOME WITH HOME HEALTH SERVICES
[2019-01-31] MEDS: SYMBICORT 80-4.5 MCG INHALER INHALATION SCH (08:25)
[2019-01-31 08:57] VITALS: BP 133/62; PULSE 68; RESP 16; TEMP 98.4
[2019-01-31] MEDS ORDERED: MULTIVITAMINS, THERA 1 EACH TAB PO SCH (09:00)
[2019-01-31] MEDS ORDERED: CHOLECALCIFEROL 1,000 UNIT TAB PO SCH (09:00)
[2019-01-31] MEDS ORDERED: MELOXICAM 7.5 MG TAB PO SCH (09:00)
[2019-01-31] MEDS ORDERED: ALLOPURINOL 300 MG TAB PO SCH (09:00)
[2019-01-31] MEDS ORDERED: amLODIPine 10 MG TAB PO SCH (09:00)
[2019-01-31] MEDS ORDERED: LOSARTAN-HCTZ 50-12.5 MG 1 EACH TAB PO SCH (09:00)
[2019-01-31] MEDS ORDERED: ASPIRIN 81 MG PO SCH (09:00)
[2019-01-31] MEDS: ENOXAPARIN 30 MG/0.3 ML SYRINGE SQ SCH (12:07)
--- NOTE | 2019-01-31 12:29 | P.PN ---
Subjective Progress Note Date: 01/31/19 Principal diagnosis: Status post left total knee arthroplasty postoperative day 1 This is a 73-year-old white male, familiar to my service, patient is known to have history of mild intermittent asthma, hypertension, dyslipidemia, and history of osteoarthritis. Patient has been complaining of left knee pain and discomfort for a long time. Seen recently by Dr. Huerta, and he was advised to undergo left total knee arthroplasty. The surgery was done today, and postoperatively I was asked to see him on consultation. Patient was cleared by me prior to his surgery he was also cleared by cardiology. After surgery the patient seems to be quite asymptomatic except for postoperative pain. Denies any cough, no wheezing, no shortness of breath, no chest pain. No nausea no vomiting no abdominal pain. Previous echocardiogram in the last 2 years showed mild mitral regurgitation and mild tricuspid regurgitation, and he had normal ejection fraction. Recent EKG at the barrel scraper's office showed a right bundle branch block and left anterior fascicular block, sinus rhythm. On 01/31/2019 patient seen in follow-up on medical surgical floor. He is awake and alert, in no acute distress, denies any shortness of breath, he is working on incentive spirometer, he is achieving 1500 on it today, lung sounds are clear, no rhonchi, no wheezing. Patient states he is having some mild to moderate discomfort in his left knee today, but no acute distress, patient is on a combination of oral [place]'s and IV Dilaudid for breakthrough pain. He is on his home dose small bit, anesthesia services following, and patient has a adductor canal catheter with infusion of ropivacaine. Clinically stable, no acute events overnight. Today's blood work has been reviewed, showing white blood cell count of 11.2, hemoglobin of 13.2, no BMP was done, no new chest x- rays, no fever, no chills. No chest pain, no calf tenderness, no numbness or tingling and bilateral lower extremities, lower extremity pulses are intact Objective - Vital Signs Vital signs: Vital Signs Temp 98.4 F 01/31/19 07:00 Pulse 68 01/31/19 08:35 Resp 16 01/31/19 08:35 BP 133/62 01/31/19 07:00 Pulse Ox 93 L 01/31/19 01:46 Intake & Output 01/30/19 01/31/19 01/31/19 18:59 06:59 18:59 Intake Total 1801 1300 Output Total 35 Balance 1766 1300 Weight 90.265 kg Intake: IV 1801 Intake, IV Titration 800 Amount Lactated Ringers 1,000 ml 800 @ 80 mls/hr IV .[id number] JACQUELINE Rx#:[id number] Oral 500 Output: Estimated Blood Loss 35 Other: Voiding Method Urinal Urinal # Voids 3 3 - Exam GENERAL EXAM: Alert, pleasant, 73-year-old white male, on room air, with a pulse ox of 93% comfortable in no apparent distress. HEAD: Normocephalic/atraumatic. EYES: Normal reaction of pupils, equal size. Conjunctiva pink, sclera white. NOSE: Clear with pink turbinates. THROAT: No erythema or exudates. NECK: No masses, no JVD, no thyroid enlargement, no adenopathy. CHEST: No chest wall deformity. Symmetrical expansion. LUNGS: Equal air entry with no crackles, wheeze, rhonchi or dullness. CVS: Regular rate and rhythm, normal S1 and S2, no gallops, no murmurs, no rubs ABDOMEN: Soft, nontender. No hepatosplenomegaly, normal bowel sounds, no guarding or rigidity. EXTREMITIES: No clubbing, no edema, no cyanosis, 2+ pulses and upper and lower extremities. MUSCULOSKELETAL: Muscle strength and tone normal. Left knee incision is covered with surgical dressings, left knee is slightly swollen, distal pulses and sensory status intact no numbness, no tingling SPINE: No scoliosis or deformity SKIN: No rashes CENTRAL NERVOUS SYSTEM: Alert and oriented -3. No focal deficits, tone is normal in all 4 extremities. PSYCHIATRIC: Alert and oriented -3. Appropriate affect. Intact judgment and insight. - Labs CBC & Chem 7: 01/31/19 06:18 Labs: Abnormal Lab Results - Last 24 Hours (Table) 01/31/19 Range/Units 06:18 WBC 11.2 H (3.8-10.6) k/uL RBC 4.22 L (4.30-5.90) m/uL Hct 38.2 L (39.0-53.0) % Neutrophils # 8.9 H (1.3-7.7) k/uL Assessment and Plan Plan: Assessment: 1 status post left total knee arthroplasty postoperative day #1. 2 history of mild intermittent asthma, presently asymptomatic 3 history of hypertension patient will be placed back on his usual cardiac meds and blood pressure medication 4 history of GERD patient will be placed on Protonix 5 history of dyslipidemia. 6 previous history of left knee arthroscopy Plan: Continue encouraging deep breathing and coughing, anticipate patient out of bed today with therapy. We will resume patient's home medications including his maintenance inhalers and nebulized treatments, his asthma is stable, patient was placed then on GI and DVT prophylaxis, maintain pain control. Today's blood wor k has been reviewed, and is unremarkable. No acute events overnight, no shortness of breath no chest pain. Anticipate discharge home today, patient is stable for discharge home from pulmonary perspective, follow up with Dr. Rivas in the office in 7-10 days I performed a history & physical examination of the patient and discussed their management with my nurse practitioner, Ayesha Sousa. I reviewed the nurse practitioner's note and agree with the documented findings and plan of care. Lung sounds are positive for clear breath sounds. The findings and the impression was discussed with the patient. I attest to the documentation by the nurse practitioner. Time with Patient: Less than 30
== END 2019-01-31 12:24 | disposition home health service (06) ==
LOC: OR 08:31 → 4SSUR 14:18 → OR 01-31 12:24
PROVIDERS: ATTEND Orthopaedic Surgery
DX: M17.12 Unilateral primary osteoarthritis, left knee (principal); I10 Essential (primary) hypertension; E78.2 Mixed hyperlipidemia; K21.9 Gastro-esophageal reflux disease without esophagitis; Z82.49 Family history of ischemic heart disease and other diseases of the circulatory system; J44.9 Chronic obstructive pulmonary disease, unspecified; I45.10 Unspecified right bundle-branch block; Z87.442 Personal history of urinary calculi; I08.1 Rheumatic disorders of both mitral and tricuspid valves; Z79.82 Long term (current) use of aspirin; Z79.51 Long term (current) use of inhaled steroids; Z79.899 Other long term (current) drug therapy; Z79.891 Long term (current) use of opiate analgesic; Z91.048 Other nonmedicinal substance allergy status; Z91.041 Radiographic dye allergy status; I45.2 Bifascicular block
CPT/HCPCS: 27447; 64448; 94640 ×2; 97161; 85025; 88300; 73560; C1776; C1713; C1772; J2250; J0171; J1200; J1100; J2175; J0690 ×3; J2405; J3010; J1885; J1650; J1170 ×2; J2795 ×2; J2704; J0735

== ENCOUNTER → 2019-11-29 | Outpatient (CLI) | payer MEDICARE, MEDICAID ==
[2019-11-29 15:36] LABS: Basophils % (A) 0 %; Eosinophils # (A) 0.3 k/uL (0-0.7); Eosinophils % (A) 4 %; HCT 44.3 % (39.0-53.0); HGB 14.5 gm/dL (13.0-17.5); Lymphocytes # (A) 2.6 k/uL (1.0-4.8); Lymphocytes % (A) 37 %; MCH 30.5 pg (25.0-35.0); MCHC 32.8 g/dL (31.0-37.0); MCV 93.1 fL (80.0-100.0); Mean Platelet Volume 7.8; Monocytes # (A) 0.4 k/uL (0-1.0); Monocytes % (A) 6 %; Neutrophils # (A) 3.7 k/uL (1.3-7.7); Neutrophils % (A) 52 %; Platelet Count 233 k/uL (150-450); RBC 4.76 m/uL (4.30-5.90); WBC 7.1 k/uL (3.8-10.6)
[2019-11-29 23:17] LABS: African American GFR (CKD) 69.6 (60.0-200.0); Albumin 4.4 g/dL (3.80-4.90); Albumin/Globulin Ratio 1.91 (1.60-3.17); Anion Gap 9.7 mmol/L (4.00-12.00); BUN/Creat Ratio 18.33 Ratio (12.00-20.00); Calcium 9.6 mg/dL (8.7-10.3); Carbon Dioxide 25.3 mmol/L (21.6-31.8); Globulin 2.3 g/dL (1.6-3.3); LDL Cholesterol,Calculated 97.2 mg/dL (0.0-131.0); Non-African American GFR(CKD) 60.1 (60.0-200.0); Potassium 3.9 mmol/L (3.5-5.5); Total Bilirubin 0.9 mg/dL (0.3-1.2); Total Protein 6.7 g/dL (6.2-8.2); VLDL Calculation 22.8 mg/dL (5.00-40.00)
[2019-11-29 23:25] LABS: T4, Free (Free Thyroxine) 1.1 ng/dL (0.80-1.80)
== END | disposition home or self-care (01) ==
LOC: LABWHC1 13:08
PROVIDERS: ATTEND Internal Medicine
DX: Z00.00 Encounter for general adult medical examination without abnormal findings (principal); E78.5 Hyperlipidemia, unspecified; E55.9 Vitamin D deficiency, unspecified; I10 Essential (primary) hypertension; Z12.5 Encounter for screening for malignant neoplasm of prostate
CPT/HCPCS: 84439; 80061; 80053; 84443; 85025; 82306; 36415; G0103

== ENCOUNTER → 2020-11-05 | Outpatient (CLI) | payer MEDICARE, MEDICAID ==
[2020-11-05 19:22] LABS: Basophils # (A) 0.03 X 10*3/uL (0.00-0.10); Basophils % (A) 0.5 %; Eosinophils # (A) 0.21 X 10*3/uL (0.04-0.35); Eosinophils % (A) 3.2 %; HCT 40.1 % (39.6-50.0); Lymphocytes # (A) 2.48 X 10*3/uL (0.90-5.00); Lymphocytes % (A) 37.2 %; MCH 31.5 pg (27.0-32.0); MCHC 34.9 g/dL (32.0-37.0); MCV 90.1 fL (80.0-97.0); Mean Platelet Volume 10.4 fL (9.5-12.2); Monocytes # (A) 0.69 X 10*3/uL (0.20-1.00); Monocytes % (A) 10.4 %; Neutrophils # (A) 3.24 X 10*3/uL (1.80-7.70); Neutrophils % (A) 48.5 %; Platelet Count 245 X 10*3/uL (140-440); RBC 4.45 X 10*6/uL (4.40-5.60); RDW 13.3 % (11.5-14.5); WBC 6.66 X 10*3/uL (4.50-10.00)
[2020-11-05 20:18] LABS: INR 0.91 (0.90-1.11)
[2020-11-05 22:42] LABS: African American GFR (CKD) 69.1 (60.0-200.0); Albumin 4.3 g/dL (3.80-4.90); Albumin/Globulin Ratio 1.87 (1.60-3.17); Anion Gap 8.7 mmol/L (4.00-12.00); BUN/Creat Ratio 24.17 Ratio (12.00-20.00); Carbon Dioxide 23.3 mmol/L (21.6-31.8); Globulin 2.3 g/dL (1.6-3.3); Non-African American GFR(CKD) 59.6 (60.0-200.0); Potassium 3.5 mmol/L (3.5-5.5); Total Bilirubin 0.6 mg/dL (0.2-1.2); Total Protein 6.6 g/dL (6.2-8.2)
== END | disposition home or self-care (01) ==
LOC: LABWHC1 14:41
PROVIDERS: ATTEND Internal Medicine
DX: Z01.812 Encounter for preprocedural laboratory examination (principal)
CPT/HCPCS: 36415; 80053; 85025; 85610

== ENCOUNTER 2020-11-20 05:50 | Day surgery (SDC) | payer MEDICARE, MEDICAID ==
[2020-11-15 16:28] VITALS: BMI 28.0
--- NOTE | 2020-11-19 15:45 | HP ---
HISTORY AND PHYSICAL HISTORY OF PRESENT ILLNESS: Raj Lainez is a 75-year-old gentleman seen with progressive left shoulder pain. We discussed treatment options with him and proceeded with arthroscopy. Consent was obtained. Medical clearance was provided by Dr. Varela. PAST MEDICAL HISTORY: Hypertension, hyperlipidemia, asthma, gastroesophageal reflux disease. PAST SURGICAL HISTORY: Herniorrhaphy, total knee arthroplasty, toe surgery. DAILY MEDICATIONS: Amlodipine, Advair, aspirin, losartan, lovastatin, vitamins. ALLERGIES: NONE. SOCIAL HISTORY: Denies tobacco use. PHYSICAL EXAMINATION: Evaluation of the left shoulder: Flexion 160 degrees, abduction 140 degrees, external rotation 30 degrees with pain and weakness. Tenderness along the anterior lateral rotator cuff and anterolateral acromion. Impingement positive at 90. Drop-arm sign is positive. Distal neurovascular exam is intact. RADIOGRAPHS: Left shoulder radiographs revealed a type 2 acromion, cystic changes of the tuberosity MRI left shoulder rotator cuff tear, labral tear and biceps tendinitis. IMPRESSION: 1. Left shoulder impingement with rotator cuff tear. 2. Left shoulder acromioclavicular joint osteoarthritis. 3. Hypertension. 4. Hyperlipidemia. 5. Asthma. PLAN: Left shoulder arthroscopy, subacromial decompression, arthroscopic rotator cuff repair, Ifrah procedure and debridement. Surgery scheduled for 11/20/2020. MMODL / IJN: [id number] /
[~2020-11-20 05:50] MED LIST changes: -ACETAMINOPHEN TAB 500 MG TAB PO ONE; -DEXAMETHASONE SOD PHOSPHATE 10 MG/ML 1 ML VIAL IV ONE; +DEXAMETHASONE SOD PHOSPHATE 4 MG/ML 1 ML VIAL IV ONE; +LIDOCAINE 1% (10MG/ML) FOR IV START INTRADERMA PRN; -MELOXICAM 7.5 MG TAB PO ONE; -ROPIVACAINE 246.25 MG, EPINEPHrine 0.5 MG, KETOROLAC 30 MG, cloNIDine HCL/PF 80 MCG, WA... MISCELLANE ONE; -TRANEXAMIC ACID 1,000 MG in SODIUM CHLORIDE 0.9% 100 ML IVPB ONE
[2020-11-20 06:30] VITALS: TEMP 98.1
[2020-11-20] MEDS: LACTATED RINGERS 1,000 ML IV SCH ×2 (06:37→07:26)
[2020-11-20] MEDS ORDERED: LIDOCAINE 1% (10MG/ML) FOR IV START INTRADERMA ONE (06:38)
[2020-11-20] MEDS ORDERED: MIDAZOLAM 2 MG/2 ML VIAL IVP ONE (07:01)
[2020-11-20] MEDS ORDERED: PROPOFOL 10 MG/ML 20 ML VIAL IV ONE (07:23)
[2020-11-20] MEDS ORDERED: NEOSTIGMINE 1 MG/ML 10 ML VIAL ONE (07:23)
[2020-11-20] MEDS ORDERED: HYDROmorphone (PF) 1 MG/ML ONE (07:23)
[2020-11-20] MEDS ORDERED: ePHEDrine SULFATE/0.9% NACL/PF 50 MG/5 ML SYRINGE IV ONE (07:23)
[2020-11-20] MEDS ORDERED: ROPIVACAINE 5 MG/ML 30 ML VIAL ONE (07:23)
[2020-11-20] MEDS ORDERED: SUCCINYLCHOLINE CHLORIDE 100 MG/5 ML SYR IV ONE (07:23)
[2020-11-20] MEDS ORDERED: DEXAMETHASONE SOD PHOSPHATE 4 MG/ML 1 ML VIAL ONE (07:23)
[2020-11-20] MEDS ORDERED: MIDAZOLAM 2 MG/2 ML VIAL ONE (07:23)
[2020-11-20] MEDS ORDERED: GLYCOPYRROLATE 0.2 MG/ML 2 ML VIAL ONE (07:23)
[2020-11-20] MEDS ORDERED: ROCURONIUM 10 MG/ML (5 ML VIAL) IV ONE (07:23)
[2020-11-20] MEDS ORDERED: fentaNYL (PF) 50 MCG/ML 2 ML AMP ONE (07:23)
[2020-11-20] MEDS ORDERED: LIDOCAINE 1% INJ 10MG/ML (20 ML MDV) ONE (07:23)
[2020-11-20] MEDS ORDERED: LACTATED RINGERS 1,000 ML IV ONE (10:08)
--- NOTE | 2020-11-20 10:28 | P.OP ---
Date of Procedure: 11/20/20 Preoperative Diagnosis: Left shoulder impingement Postoperative Diagnosis: 1. Left shoulder rotator cuff tear 2. Left shoulder impingement 3. Left shoulder acromioclavicular joint osteoarthritis 4. Left shoulder partial long head biceps tendon tear Procedure(s) Performed: 1. Left shoulder arthroscopic rotator cuff repair 2. Left shoulder arthroscopic subacromial decompression 3. Left shoulder arthroscopic Ifrah procedure 4. Left shoulder arthroscopic biceps tenotomy Implants: 5Arthrex swivel lock anchors Anesthesia: GETA, regional (Interscalene block) Surgeon: Hitesh Huerta Button And Buckle Maker #1: Rey Hill Estimated Blood Loss (ml): 15 Pathology: none sent Condition: stable Disposition: PACU Indications for Procedure: 75-year-old patient seen with progressive left shoulder pain. After treatment options were discussed, he elected to proceed with arthroscopy. Operative Findings: See description of procedure Description of Procedure: Patient underwent an interscalene block by department of anesthesia. The patient was then taken to the operative suite. The patient underwent a general anesthetic by the department of anesthesia. The patient was placed into a lateral position and secured. There was appropriate padding of the bony prominence. Left shoulder was then prepped and draped in normal sterile orthopedic fashion. We placed the extremity in 10 pounds of longitudinal traction. A posterior incision was now made for a posterior working portal site. The trocar and cannula were inserted into the glenohumeral joint. Arthroscopy was initiated. Spinal needle was now inserted anteriorly, to ascertain the anterior working portal site. An incision was now made in that area, a trocar was inserted followed by a probe. There was some hyperemia and partial tearing of the long head biceps tendon. There were some grade 1/2 chondromalacia changes along the superior portion of the glenoid fossa. The labrum was probed and found to be stable. There appeared to be massive rotator cuff tear. I performed an arthroscopic biceps tenotomy. I again probed the labrum and it was found to be stable. Instruments now removed from glenohumeral joint. Utilizing the posterior working portal site, the trocar and cannula were inserted into the subacromial space. Arthroscopy initiated. I made an incision 2 fingerbreadths lateral to the acromion. I introduced my trocar followed by my ArthroCare ablator. I now began ablating thick subacromial bursal tissue, which exposed the undersurface of the anterior acromion. There was diminished suba cromial space. There was a very prominent anterior acromion. A motorized bur was introduced and a subacromial decompression was performed. I also excised some osteophytes off the inferior aspect of the distal clavicle. The AC joint was visualized and noted to be fairly arthritic. The motorized bur was introduced in the anterior portal site and a Ifrah procedure was performed without difficulty, decompressing the AC joint nicely. I turned my attention to the rotator cuff. There was a 3.5-4 cm fairly massive rotator cuff tear. I debrided the margins getting down to stable tendon tissue. I tried to pull it over the footprint and it was not mobile. I performed a significant release. I again try to pull the footprint I can just barely get over the footprint. I passed 2 suture centrally for converging sutures and repaired that area. I pull the tendon I could get over the footprint by about half a centimeter. I again tried releasing the tendon all the way around and again pull the tendon over the footprint again got about half to three quarters of a centimeter of coverage. Given this massive retracted tear this is about all could get over the footprint. I introduced my motorized bur and abraded the footprint area, getting some petechial bleeding. I now made an accessory portal site off the lateral aspect of the acromion. I punched 2 holes medial for medial row fixation with the assistance of Gomez AGUIRRE carefully tapping the punch with a mallet as I held the punch and the camera. I now introduced both anchors into the pre- punched holes and Gomez AGUIRRE tapped them with the mallet as I held anchors and the camera. Gomez AGUIRRE now screwed the anchors in place a while I held the anchor guide and camera. All 8 limbs of suture were now passed through good bites of rotator cuff tendon. I now passed a everted mattress suture tape centrally. I pull the tendon over the footprint and with assistance of Gomez AGUIRRE secured a anchor laterally to hold the tendon in position. I now punched 2 holes for lateral row fixation again I held the punch and camera while Gomez AGUIRRE used a mallet to tap in the punch. We now passed sutures through both anchors and individually I introduced the anchors into the pre-punch holes I held the anchor guide in position with one hand holding the camera with the other hand while Gomez AGUIRRE tensioned the sutures and screwed in the anchors one at a time. All residual suture limbs were now clipped. We had good compression of the tendon along the entire footprint. I injected 1 mL Renyte intra-articular. Instruments now removed from the portal sites. All portal sites were approximated with nylon suture. Sterile dressings were applied followed by a shoulder immobilizer. Rey AGUIRRE assisted in this complex case. The patient was awakened, transferred to a bed, and taken to recovery in stable condition.
[2020-11-20] MEDS ORDERED: ONDANSETRON 4 MG/2 ML VIAL ONE (12:49)
[2020-11-20] MEDS ORDERED: ONDANSETRON 4 MG/2 ML VIAL IVP ONE (12:56)
[2020-11-20 13:10] VITALS: RESP 18
[2020-11-20 14:31] VITALS: BP 127/78
[2020-11-20 14:34] VITALS: PULSE 80
--- NOTE | 2020-11-21 20:33 | P.ANPRN ---
Procedure Note - Anesthesia - Nerve Block Performed Left Interscalene Single Time Out Performed: Yes Date of Procedure: 11/20/20 Procedure Start Time: 07:00 Procedure Stop Time: 07:05 Location of Patient: PreOp Indication: Acute Post-Operative Pain, Requested by Surgeon Sedation Type: Sedate with meaningful contact maintained Preparation: Sterile Prep Position: Supine Needle Types: Pajunk Needle Gauge: 21 Ultrasound used to visualize needle placement: Yes Ultrasound used to observe medication spread: Yes Blood Aspirated: No Pain Paresthesia on Injection Noted: No Resistance on Injection: Normal Image Stored and Saved: Yes Events: Uneventful and Well Tolerated (ROPI .5% 25CC PLUS DEXAMETHASONE 4MG)
== END 2020-11-20 15:20 | disposition home or self-care (01) ==
LOC: OR 05:50
PROVIDERS: ATTEND Orthopaedic Surgery
DX: M75.102 Unspecified rotator cuff tear or rupture of left shoulder, not specified as traumatic (principal); M94.212 Chondromalacia, left shoulder; M25.712 Osteophyte, left shoulder; M25.812 Other specified joint disorders, left shoulder; M19.012 Primary osteoarthritis, left shoulder; S46.112A Strain of muscle, fascia and tendon of long head of biceps, left arm, initial encounter; X58.XXXA Exposure to other specified factors, initial encounter; I10 Essential (primary) hypertension; E78.5 Hyperlipidemia, unspecified; J45.909 Unspecified asthma, uncomplicated; K21.9 Gastro-esophageal reflux disease without esophagitis; Z96.659 Presence of unspecified artificial knee joint; Z98.890 Other specified postprocedural states; Z79.82 Long term (current) use of aspirin; Z79.51 Long term (current) use of inhaled steroids; Z79.899 Other long term (current) drug therapy; N40.0 Benign prostatic hyperplasia without lower urinary tract symptoms; Z91.048 Other nonmedicinal substance allergy status; Z90.49 Acquired absence of other specified parts of digestive tract
CPT/HCPCS: 64415; 76942; 29826; 29827; 29824; C1713 ×3; C1894; J2250; J1100; J2710; J0690; J2405; J2001; J3010; J1170 ×2; J2795; J0330; J2704

== ENCOUNTER → 2022-05-05 | Outpatient (CLI) | payer MEDICARE, MEDICAID ==
[2022-05-05 23:27] LABS: Basophils # (A) 0.04 X 10*3/uL (0.00-0.10); Basophils % (A) 0.5 %; Eosinophils # (A) 0.13 X 10*3/uL (0.04-0.35); Eosinophils % (A) 1.5 %; HCT 41.6 % (39.6-50.0); Immature Grans, Automated 0.2 %; Lymphocytes # (A) 2.98 X 10*3/uL (0.90-5.00); Lymphocytes % (A) 34.9 %; MCH 32.3 pg (27.0-32.0); MCHC 36.1 g/dL (32.0-37.0); MCV 89.7 fL (80.0-97.0); Mean Platelet Volume 10.6 fL (9.5-12.2); Monocytes # (A) 0.76 X 10*3/uL (0.20-1.00); Monocytes % (A) 8.9 %; NRBC Per 100 WBC 0 /100 WBCS (0.0-0.0); Platelet Count 258 X 10*3/uL (140-440); RBC 4.64 X 10*6/uL (4.40-5.60); RDW 13.5 % (11.5-14.5); WBC 8.53 X 10*3/uL (4.50-10.00)
[2022-05-05 23:29] LABS: INR 0.9 (0.90-1.11); Prothrombin Time 10.2 sec (9.9-11.9)
[2022-05-05 23:59] LABS: Anion Gap 14.6 mmol/L (10.00-18.00); BUN/Creat Ratio 13.6 Ratio (12.00-20.00); Blood Urea Nitrogen 20.4 mg/dL (9.0-27.0); Carbon Dioxide 24.4 mmol/L (20.0-27.5); Non-African American GFR(CKD) 44.9 (60.0-200.0); Potassium 3.8 mmol/L (3.5-5.5)
== END | disposition home or self-care (01) ==
LOC: LABPAT 15:07
PROVIDERS: ATTEND Orthopaedic Surgery
DX: Z01.812 Encounter for preprocedural laboratory examination (principal); M17.11 Unilateral primary osteoarthritis, right knee; Z22.322 Carrier or suspected carrier of Methicillin resistant Staphylococcus aureus
CPT/HCPCS: 36415; 80048; 85025; 85610; 87070

== ENCOUNTER 2022-05-11 05:55 | Observation (INO) | payer MEDICARE, MEDICAID ==
[2022-05-07 09:59] VITALS: BMI 28.0
--- NOTE | 2022-05-10 13:01 | HP ---
HISTORY AND PHYSICAL DATE OF SURGERY: 05/11/2022. HISTORY OF PRESENT ILLNESS: Raj Lainez is a 77-year-old gentleman, seen with symptomatic right knee osteoarthritis. We had treatment options discussed with him. He elected to proceed with right total knee arthroplasty. Consent was obtained. Medical clearance was provided by Dr. Varela. PAST MEDICAL HISTORY: Hypertension, hyperlipidemia, asthma, and gastroesophageal reflux disease. PAST SURGICAL HISTORY: Herniorrhaphy and left total knee arthroplasty. DAILY MEDICATIONS: 1. Allopurinol. 2. Advair. 3. Amlodipine. 4. Losartan. 5. Lovastatin. ALLERGIES: Iodine. SOCIAL HISTORY: Denies tobacco use. PHYSICAL EVALUATION OF THE RIGHT KNEE: Range of motion 0 to 130. Tenderness in medial joint line. Crepitus in medial and patellofemoral compartments with range of motion. Pain with patellofemoral compression. Ligaments are stable. Hip rotation without pain. Distal neurovascular exam intact. IMAGING STUDIES: Right knee radiographs reveal severe osteoarthritic changes. IMPRESSION: 1. Right knee osteoarthritis. 2. Hypertension. 3. Gastroesophageal reflux disease. PLAN: Right total knee arthroplasty. MMODL / IJN: [id number] /
[~2022-05-11 05:55] MED LIST changes: +ACETAMINOPHEN TAB 500 MG TAB PO PRN; +MELOXICAM 7.5 MG TAB PO PRN; +TRANEXAMIC ACID IN NACL,ISO-OS 1,000 MG in SALINE 1 100ML.BAG IVPB PRN
[2022-05-11] MEDS: LACTATED RINGERS 1,000 ML IV SCH ×2 (06:37→12:10)
[2022-05-11] MEDS ORDERED: MIDAZOLAM 2 MG/2 ML VIAL IVP ONE ×2 (07:11→07:17)
[2022-05-11] MEDS ORDERED: fentaNYL (PF) 50 MCG/ML 2 ML AMP ONE (07:30)
[2022-05-11] MEDS ORDERED: HYDROmorphone (PF) 1 MG/ML ONE (07:30)
[2022-05-11] MEDS ORDERED: TRANEXAMIC ACID IN NACL,ISO-OS 1,000 MG/100 ML BAG ONE (07:30)
[2022-05-11] MEDS ORDERED: NEOSTIGMINE 1 MG/ML 10 ML VIAL ONE (07:30)
[2022-05-11] MEDS ORDERED: SUCCINYLCHOLINE CHLORIDE 200 MG/10 ML VIAL IV ONE (07:30)
[2022-05-11] MEDS ORDERED: ePHEDrine 50 MG/ML 1 ML VIAL ONE (07:30)
[2022-05-11] MEDS ORDERED: PHENYLEPHRINE-0.9% NACL SYG 1,000 MCG/10 ML SYRINGE ONE (07:30)
[2022-05-11] MEDS ORDERED: LIDOCAINE 2% INJ 20 MG/ML (2 ML VIAL) ONE (07:30)
[2022-05-11] MEDS ORDERED: MIDAZOLAM 2 MG/2 ML VIAL ONE (07:30)
[2022-05-11] MEDS ORDERED: GLYCOPYRROLATE 0.2 MG/ML 2 ML VIAL ONE (07:30)
[2022-05-11] MEDS ORDERED: PROPOFOL 10 MG/ML 20 ML VIAL IV ONE (07:30)
[2022-05-11] MEDS ORDERED: ROPIVACAINE 5 MG/ML 30 ML VIAL ONE (07:30)
[2022-05-11] MEDS ORDERED: ROCURONIUM 10 MG/ML (5 ML VIAL) IV ONE (07:30)
[2022-05-11] MEDS ORDERED: ROPIVACAINE 0.2%-NS ON-Q PUMP 1,090 MG, EMPTY PAIN BALL 1 EACH MISCELLANE PRN (07:53)
--- NOTE | 2022-05-11 07:56 | P.ANPRN ---
Procedure Note - Anesthesia - Nerve Block Performed Right Adductor Canal Infusion Time Out Performed: Yes (0712) Date of Procedure: 05/11/22 Location of Patient: PreOp Indication: Acute Post-Operative Pain, Dx/Pain Location (Right knee), Requested by Surgeon Specifically requested for management of pain by DrNorman: Hitesh Huerta Sedation Type: Sedate with meaningful contact maintained Preparation: Sterile Prep, Sterile Dressing Position: Supine Catheter: Indwelling Needle Types: Pajunk Needle Gauge: 18 Ultrasound used to visualize needle placement: Yes Ultrasound used to observe medication spread: Yes Injectate: 0.5% Ropivacaine (see comment for volume) (15 cc) Blood Aspirated: No Pain Paresthesia on Injection Noted: No Resistance on Injection: Normal Image Stored and Saved: Yes Events: Uneventful and Well Tolerated Right iPack Single Time Out Performed: Yes Date of Procedure: 05/11/22 Location of Patient: PreOp Indication: Acute Post-Operative Pain, Dx/Pain Location (Right Knee ), Requested by Surgeon Specifically requested for management of pain by DrNorman: Hitesh Huerta Sedation Type: Sedate with meaningful contact maintained Preparation: Sterile Prep Position: Left Lateral Catheter: None Needle Types: Pajunk Needle Gauge: 21 Ultrasound used to visualize needle placement: Yes Ultrasound used to observe medication spread: Yes Injectate: 0.5% Ropivacaine (see comment for volume) (15 cc) Blood Aspirated: No Pain Paresthesia on Injection Noted: No Resistance on Injection: Normal
[2022-05-11] MEDS ORDERED: LACTATED RINGERS 1,000 ML IV ONE ×2 (08:19→09:16)
[2022-05-11] MEDS ORDERED: NALOXONE 0.4 MG/ML 1 ML VIAL IV PRN (09:16)
[2022-05-11] MEDS ORDERED: ONDANSETRON 4 MG/2 ML VIAL IVP PRN (09:16)
[2022-05-11] MEDS ORDERED: HYDROcodone/APAP 5-325MG 1 EACH TAB PO PRN (09:16)
[2022-05-11] MEDS ORDERED: HYDROmorphone 0.5 MG/0.5 ML SYRINGE IVP PRN ×2 (09:16)
--- NOTE | 2022-05-11 09:16 | P.OP ---
Date of Procedure: 05/11/22 Preoperative Diagnosis: Right knee osteoarthritis Postoperative Diagnosis: Right knee osteoarthritis Procedure(s) Performed: Right total knee arthroplasty Implants: 1. Depuy attune size 7 right cruciate retaining cemented femur 2. Depuy attune size 7 fixed bearing cemented tibial baseplate 3. Depuy attune size 7 fixed bearing cruciate retaining 12 mm polyethylene tibial insert 4. Depuy attune 38 mm all polyethylene cemented patella Anesthesia: GETA, regional (Adductor canal catheter, Ipack block) Surgeon: Hitesh Huerta Legal Activity Adjudicator #1: Rey Hill Estimated Blood Loss (ml): 45 Pathology: other (Bone) Condition: stable Disposition: PACU Indications for Procedure: 77-year-old gentleman seen with symptomatic right knee osteoarthritis. After having treatment options discussed, he elected to proceed with total knee arthroplasty. Operative Findings: See description of procedure Description of Procedure: Patient was taken to the operative suite after having an adductor canal catheter placed by the department of anesthesia. Patient underwent a general anesthetic by the department of anesthesia. Patient was given preoperative IV intake antibiotics and TXA. A well-padded tourniquet was placed about the right lower extremity. The lower extremity was then prepped and draped in the normal sterile orthopedic fashion. The extremity was elevated, a tourniquet was insufflated to 300. A standard anterior incision was made sharply through skin. Dissection was taken down through the subcutaneous soft tissues down to the extensor mechanism. A medial arthrotomy was performed, patella was everted and knee was flexed. There was advanced osteoarthritis noted. I introduced my distal intramedullary femoral drill. I then introduced the distal femoral cutting jig. Gomez AGUIRRE secured the cutting jig with 2 pins. I held retractors in position while Gomez AGUIRRE performed the distal femoral resection through the guide area we now removed her distal femoral cutting guide. We now placed our 4-in-1 femoral cutting block and positioned and it was secured with 2 pins by Gomez AGUIRRE while I held the block in position. The distal femoral finishing was now completed. A proximal tibial cutting guide was positioned. I held the guide in the appropriate position with both hands well Gomez AGUIRRE inserted stabilizing pins into the guide. Proximal tibial cut was made. We now placed a trial femoral component into position, along with an appropriate size tibial tray and insert. We now took the knee through range of motion and had full extension good flexion and good overall soft tissue balance noted. The patella was everted and stabilized with 2 towel clips held by Gomez AGUIRRE while I performed a flush with patellar quad tendon utilizing a fresh sawblade. We templated the patella, appropriate drill holes were made. An appropriate trial patella was positioned, knee was taken through full range of motion with the patella tracking very nicely. The trial patella was removed. Drill holes were made through the femoral component. All trial components were removed after marking off the appropriate rotation of the tibia. Retractors were now positioned along the proximal tibia. An appropriate keel punch was made with the appropriate size tibial guide by myself on Gomez AGUIRRE assisted by holding retractors. At this point appropriate size implants were chosen and opened. The joint was irrigated copiously with pulse lavage mechanical irrigation. The wound was irrigated with pulse lavage mechanical irrigation. We mixed antibiotic methylmethacrylate. We placed the knee into flexion. We placed multiple retractors assisted by Gomez AGUIRRE to expose the proximal tibia. Once the methyl methacrylate was ready, the tibial component was cemented into place removing any excess methylmethacrylate form by both myself and Gomez AGUIRRE. The femoral component was cemented into place removing the removing any excess methylmethacrylate performed by both myself and Gomez AGUIRRE. We then inserted the appropriate size polyethylene tibial insert. We made sure that it was locked into position. We took the knee into full extension, and then back in a flexion making sure we had removed any excess methylmethacrylate. The patellar component was then cemented down and secured with clamp. Excess methylmethacrylate removed. We kept the knee in full extension, patellar clamp in position until methylmethacrylate had hardened. Once it had hardened the patellar clamp was removed. The knee was taken through full range of motion. The patella tracked nicely. There was good soft tissue balancing. The tourniquet was now released. Additional hemostasis was achieved via electrocautery. A second gram of TXA was given. The wound again was irrigated with pulse lavage mechanical irrigation. The extensor mechanism was repaired with Ethibond suture. We checked the repair with range of motion and it was stable. The subcutaneous soft tissues were repaired with Vicryl in layers. The skin was approximated with pernio/Dermabond. Sterile dressings were applied followed by loose web roll and Antonino bandage. The patient was transferred to a bed, and taken to recovery in stable and satisfactory condition. Gomez AGUIRRE assisted with this complex procedure.
[2022-05-11] MEDS ORDERED: HYDROmorphone 1 MG/ML 1 ML SYRINGE IVP ONE ×2 (09:42→09:49)
--- NOTE | 2022-05-11 10:12 | XR ---
EXAMINATION TYPE: XR knee limited RT DATE OF EXAM: 05/11/2022 CLINICAL HISTORY: Right knee pain and arthritis status post total knee replacement. TECHNIQUE: Portable AP and crosstable lateral views of the right knee are obtained immediately posto peratively. COMPARISON: None FINDINGS: Metallic hardware from total right knee arthroplasty is seen and appears satisfactory in a lignment and position. There is evidence of recent surgery with diffuse subcutaneous gas and soft ti ssue swelling noted. IMPRESSION: METALLIC HARDWARE FROM TOTAL RIGHT KNEE ARTHROPLASTY IS SATISFACTORY IN ALIGNMENT.
[2022-05-11] MEDS ORDERED: MORPHINE SULFATE 4 MG/ML SYRINGE IVP ONE ×4 (10:35→11:58)
[2022-05-11] MEDS ORDERED: KETOROLAC 15 MG/ML 1 ML VIAL IVP ONE (10:57)
[2022-05-11] MEDS ORDERED: ceFAZolin 1,000 MG VIAL IVPB ONE (11:51)
--- NOTE | 2022-05-11 13:28 | P.CONS ---
History of Present Illness - Reason for Consult Consult date: 05/11/22 Medical management Requesting physician: Hitesh Huerta - History of Present Illness History of Presenting Illness: Patient is a very pleasant 77-year-old male with a past medical history of hypertension, hyperlipidemia, GERD, BPH, and osteoarthritis. He is currently admitted under orthopedic surgery team status post right total knee arthroplasty secondary to right knee osteoarthritis. We have been consulted for medical management throughout patient's hospitalization. Patient seen on arrival to room from postop. Patient remains slightly sleepy from previous pain m edications/anesthesia. He easily awakens via verbal stimuli and answers questions appropriately but states he cannot stay awake and her suspected sleep. When asked if he is experiencing any postoperative pain the patient stated "honestly I don't know, I haven't yet." Patient has been drinking water since surgical procedure and denies having any episodes of postoperative nausea or vomiting. Patient has yet to urinate since operation was completed. He and his at bedside denied any history of DVTs or PEs. Patient's does report that her had complications with postoperative nausea and vomiting during previous knee replacement, again patient currently denies at this time but has only drink water since procedure. Diet to be advanced slowly and antiemetics are on board. Review of systems: Pertinent positives and negatives as discussed in HPI, a complete review of systems was performed and all other systems are negative. Physical exam: Vital signs reviewed and stable. General: Nontoxic, no distress and appears stated age. Derm: Skin warm and dry, normal coloration for ethnicity. Head: Atraumatic, normocephalic and symmetric. Eyes: EOMs intact, no lid lag, and anicteric sclera Mouth: no lip lesions, mucus membranes moist Cardiovascular: regular rate and rhythm with normal S1S2, no murmur, positive posterior tibial pulses bilaterally, and cap refill < 2 seconds. Lungs: Respirations even, regular, and unlabored on room air. Lungs CTA bilaterally, no rhonchi, no rales, no wheezing, and no accessory muscle usage. Abdominal: soft, nontender to palpation, no guarding, no appreciable organomegaly Ext: Movement and sensation intact No gross muscle atrophy, no edema, no contractures. Postoperative dressing and ice packs in place to right knee. Neuro: Speech clear, face symmetrical and CN II-XII grossly intact with no noted focal neuro deficits Psych: Alert and oriented to person, place, time, and situation. Appropriate and pleasant affect. Assessment and Plan of Care: Hypertension Monitor vital signs and continue daily medication regimen with amlodipine. Hyperlipidemia Continue daily medication regimen with atorvastatin. GERD Continue daily medication regimen with omeprazole. BPH Continue daily medication regimen with Flomax twice daily. Osteoarthritis Status post right total knee arthroplasty Management per primary admitting orthopedic surgery team including DVT prophylaxis, pain management, wound/dressing care, weightbearing, and PT/OT Thank you for allowing us to participate in the care of this pleasant patient. Do not hesitate to contact us with questions. Someone can be reached from the [facility] hospitalist group all hours of the day at [phone] or via [employer]. Reinaldo Queen NP rendered care for this patient independently, reviewed the findings and plan as documented in the note above. I did not physically speak with or examine the patient on this date. Past Medical History Past Medical History: Asthma, GERD/Reflux, Hyperlipidemia, Hypertension, Osteoarthritis (OA) Additional Past Medical History / Comment(s): RBBB, hx kidney stones History of Any Multi-Drug Resistant Organisms: None Reported Past Surgical History: Cholecystectomy, Hernia Repair, Orthopedic Surgery Additional Past Surgical History / Comment(s): lt shoulder,rt shoulder surg., great toe surg.arthroscopy lt knee, INGUINAL HERNIA REPAIR Past Anesthesia/Blood Transfusion Reactions: No Reported Reaction Additional Past Anesthesia/Blood Transfusion Reaction / Comm: no hx blood transfusion Past Psychological History: No Psychological Hx Reported Smoking Status: Never smoker Past Alcohol Use History: Occasional Past Drug Use History: None Reported - Past Family History Mother Family Medical History: No Reported History Medications and Allergies Home Medications Medication Instructions Recorded Confirmed Type Cholecalciferol [Vitamin D3] 1,000 unit PO DAILY 01/06/17 05/11/22 History Losartan/Hydrochlorothiazide 1 each PO QAM 01/06/17 05/11/22 History [Losartan-Hctz 100-25 mg Tab] Lovastatin [Mevacor] 40 mg PO HS 01/06/17 05/11/22 History Multivitamin [Men's Multi-Vitamin] 1 each PO DAILY 01/06/17 05/11/22 History Pantoprazole Sodium [Protonix] 40 mg PO QAM 01/06/17 05/11/22 History amLODIPine [Norvasc] 10 mg PO 1200 01/06/17 05/11/22 History Tamsulosin [Flomax] 0.4 mg PO 1200,2200 11/15/20 05/11/22 History Cetirizine HCl [Zyrtec] 10 mg PO DAILY 05/07/22 05/11/22 History Allergies Allergy/AdvReac Type Severity Reaction Status Date / Time Iodinated Contrast Media Allergy Dyspnea,hiv Verified 05/11/22 06:20 [Iodinated Contrast- Oral es and IV Dye] Physical Exam Osteopathic Statement: *. No significant issues noted on an osteopathic structural exam other than those noted in the History and Physical/Consult. Vitals: Vital Signs Temp Pulse Resp BP Pulse Ox 05/11/22 12:45 97.9 F 93 16 130/69 94 L 05/11/22 12:15 88 17 113/77 91 L 05/11/22 12:00 99 16 124/66 93 L 05/11/22 11:45 92 16 92/71 95 05/11/22 11:30 82 16 130/72 93 L 05/11/22 11:16 74 16 119/70 95 05/11/22 11:00 85 17 116/82 93 L 05/11/22 10:45 76 16 126/71 91 L 05/11/22 10:30 74 16 126/67 97 05/11/22 10:15 74 16 133/66 97 05/11/22 09:56 73 15 136/81 97 05/11/22 09:41 64 16 127/69 97 05/11/22 09:26 97.0 F L 77 12 128/73 94 L 05/11/22 07:30 65 16 107/71 95 05/11/22 06:28 97.9 F 68 18 130/75 97 Intake and Output 05/10/22 05/11/22 05/11/22 22:59 06:59 14:59 Intake Total 300 1750 Output Total 45 Balance 300 1705 Intake: IV 300 1750 Output: Estimated Blood Loss 45 Other: Weight 90.2 kg 90.2 kg
[2022-05-11] MEDS: amLODIPine 10 MG TAB PO SCH (14:14)
[2022-05-11] MEDS: TAMSULOSIN 0.4 MG CAP.ER.24H PO SCH ×2 (14:15→20:48)
[2022-05-11] MEDS: PANTOPRAZOLE 40 MG TABLET PO SCH (14:16)
[2022-05-11] MEDS: HYDROcodone/APAP 7.5-325MG 1 EACH TAB PO PRN (17:15)
[2022-05-11] MEDS: ENOXAPARIN 30 MG/0.3 ML SYRINGE SQ SCH (20:47)
[2022-05-11] MEDS: HYDROmorphone 0.5 MG/0.5 ML SYRINGE IVP PRN (20:48)
[2022-05-11] MEDS ORDERED: ATORVASTATIN 10 MG TAB PO SCH (21:00)
[2022-05-12] MEDS: HYDROcodone/APAP 7.5-325MG 1 EACH TAB PO PRN ×2 (02:32→08:43)
[2022-05-12] MEDS: LACTATED RINGERS 1,000 ML IV SCH ×3 (02:37→11:33)
[2022-05-12] MEDS: HYDROmorphone 0.5 MG/0.5 ML SYRINGE IVP PRN ×2 (05:38→10:32)
[2022-05-12 07:23] VITALS: BP 137/70; PULSE 65; RESP 16; TEMP 98.1
[2022-05-12] MEDS: ENOXAPARIN 30 MG/0.3 ML SYRINGE SQ SCH (08:42)
[2022-05-12] MEDS: PANTOPRAZOLE 40 MG TABLET PO SCH (08:43)
[2022-05-12] MEDS ORDERED: MELOXICAM 7.5 MG TAB PO SCH (09:00)
[2022-05-12] MEDS ORDERED: MULTIVITAMINS, THERA 1 EACH TAB PO SCH (09:00)
[2022-05-12] MEDS ORDERED: CHOLECALCIFEROL 25 MCG (1000 IU) TABLET PO SCH (09:00)
[2022-05-12] MEDS ORDERED: LOSARTAN-HCTZ 50-12.5 MG 1 EACH TAB PO SCH (09:00)
[2022-05-12 09:06] LABS: Basophils # (A) 0.01 X 10*3/uL (0.00-0.10); Basophils % (A) 0.1 %; Eosinophils # (A) 0.02 X 10*3/uL (0.04-0.35); Eosinophils % (A) 0.2 %; HCT 35.5 % (39.6-50.0); HGB 12.4 g/dL (13.0-17.0); Immature Grans, Automated 0.2 %; Lymphocytes # (A) 1.89 X 10*3/uL (0.90-5.00); Lymphocytes % (A) 19.8 %; MCH 32.2 pg (27.0-32.0); MCHC 34.9 g/dL (32.0-37.0); MCV 92.2 fL (80.0-97.0); Mean Platelet Volume 10.6 fL (9.5-12.2); Monocytes # (A) 0.89 X 10*3/uL (0.20-1.00); Monocytes % (A) 9.3 %; NRBC Per 100 WBC 0 /100 WBCS (0.0-0.0); Neutrophils # (A) 6.71 X 10*3/uL (1.80-7.70); Neutrophils % (A) 70.4 %; Platelet Count 210 X 10*3/uL (140-440); RBC 3.85 X 10*6/uL (4.40-5.60); RDW 13.1 % (11.5-14.5); WBC 9.54 X 10*3/uL (4.50-10.00)
--- NOTE | 2022-05-12 09:37 | P.PN ---
Progress Note - Text Progress Note Date: 05/12/22 Postoperative day # 1 status post total knee arthroplasty, on adductor canal perineural catheter placed for postoperative analgesia. Ropivacaine 0.2% 8 mL per hour through ON-Q pump continuous infusion. Pain is well controlled. On visual analog scale 3/10 Patient is taking PRN oral pain medications. Catheter site: Looks Ok. There is no erythema or tenderness. Continue with the current pain management plan and will follow.
--- NOTE | 2022-05-12 11:02 | P.DS ---
Providers Date of admission: 05/12/22 07:16 Expected date of discharge: 05/12/22 Attending physician: Hitesh Huerta Consults: 05/11/22 09:40 Consult Physician Routine Consulting Provider: Maricruz Salas Consult Reason/Comments: Medical Management s/p RTKA Do you want consulting provider notified?: Yes Primary care physician: Mara Varela [facility] Hospital Course: Date of admission: 05/11/2022 Date of discharge: 05/12/2022 Admission diagnosis: Right knee osteoarthritis Discharge diagnosis: Same Attending physician: Dr. Huerta Surgical procedures: Right total knee arthroplasty Brief history: Patient is a 77-year-old male with a history of progressive primary right knee osteoarthritis. At this point patient has failed conservativ e treatment measures and has opted to proceed with a elective right total knee arthroplasty. Hospital course: Details of patient's surgery can be found in operative report. Patient tolerated the procedure well and was subsequently transported to orthopedic floor. Patient's orthopeidc and medical care was provided daily. Patient had daily laboratory tests performed for evaluation of overall blood counts. Patient had daily physical therapy to include strengthening range of motion as well as education with walker ambulation. Patient was treated with Lovenox for their postoperative DVT prophylaxis during their inpatient stay. Patient was noted to have a relatively uneventful postoperative course. Patient reported satisfactory pain control with oral pain medications by postoperative day 1. Patient showed satisfactory progress with physical therapy. Patient moved steadily through the program and had no difficulty meeting the goals by postoperative day 1. Given patient's otherwise satisfactory course and having met physical therapy goals, plan is to discharge patient home with health services on postoperative day 1. Discharge condition/disposition: Patient will be discharged home with health services in stable condition. Discharge medications: Instructions are given on resumption of patient's normal daily medications per primary care recommendation, in addition patient will be prescribed [place]; aspirin 81 mg twice a day 30 days; Colace. Discharge instructions: 1. Wound care and infection precautions, keep incision dry and covered while showering, no lotions, creams, moisturizers. No soaking, tubs, pools, hottubs. Do not scrub over the incision. 2. Weight-bear as tolerated with walker / cane until follow-up. 3. Ice and elevate when necessary. Do not exceed 20 minutes per hour with ice pack. 4. Utilize compression sleeve until seen at first follow up appointment. 5. Visiting nursing care. 6. Home physical therapy including home CPM. 7. Pain meds and anticoagulants per prescription. 8. Pain medication has potential to cause constipation. Increase oral fluid and fiber intake. Contact primary care provider if you have not had a bowel movement within 48 hours after discharge 9. No anti-inflammatory medication until discussed at first post operative visit, this including Motrin, Aleve, Mobic, Diclofenac. 10. Follow up in office at 2 weeks postop with Gomez Hill PA-C / James Chicas PA-C 11. Follow up with your primary care doctor 7-10 days after discharge. 12. Contact [facility] with any questions, . Assessment: Right knee osteoarthritis Procedures: Right total knee arthroplasty Patient Condition at Discharge: Good Plan - Discharge Summary Discharge Rx Participant: Yes New Discharge Prescriptions: New Docusate [Colace] 100 mg PO DAILY #30 capsule Aspirin [Adult Low Dose Aspirin EC] 81 mg PO BID #60 tab HYDROcodone/APAP 7.5-325MG [Benoit 7.5] 1 - 2 each PO Q6HR PRN #32 tab PRN Reason: Pain Continue Lovastatin [Mevacor] 40 mg PO HS Cholecalciferol [Vitamin D3 (25 Mcg = 1000 Iu)] 1,000 unit PO DAILY amLODIPine [Norvasc] 10 mg PO 1200 Pantoprazole Sodium [Protonix] 40 mg PO QAM Multivitamin [Men's Multi-Vitamin] 1 each PO DAILY Losartan/Hydrochlorothiazide [Losartan-Hctz 100-25 mg Tab] 1 each PO QAM Tamsulosin [Flomax] 0.4 mg PO 1200,2200 Cetirizine HCl [Zyrtec] 10 mg PO DAILY Discharge Medication List Cholecalciferol [Vitamin D3 (25 Mcg = 1000 Iu)] 1,000 unit PO DAILY 01/06/17 [History] Losartan/Hydrochlorothiazide [Losartan-Hctz 100-25 mg Tab] 1 each PO QAM 01/06/17 [History] Lovastatin [Mevacor] 40 mg PO HS 01/06/17 [History] Multivitamin [Men's Multi-Vitamin] 1 each PO DAILY 01/06/17 [History] Pantoprazole Sodium [Protonix] 40 mg PO QAM 01/06/17 [History] amLODIPine [Norvasc] 10 mg PO 1200 01/06/17 [History] Tamsulosin [Flomax] 0.4 mg PO 1200,2200 11/15/20 [History] Cetirizine HCl [Zyrtec] 10 mg PO DAILY 05/07/22 [History] Aspirin [Adult Low Dose Aspirin EC] 81 mg PO BID #60 tab 05/12/22 [Rx] Docusate [Colace] 100 mg PO DAILY #30 capsule 05/12/22 [Rx] HYDROcodone/APAP 7.5-325MG [Benoit 7.5] 1 - 2 each PO Q6HR PRN #32 tab 05/12/22 [Rx] Follow up Appointment(s)/Referral(s): [facility],Equipment [NON-STAFF] - As Needed (Call [facility] once home to arrange delivery of the Continuous Passive Motion (CPM) machine. ) [facility], [NON-STAFF] - 1-2 Days ([facility] will call you to arrange your in home physical therapy and nursing appointment. ) Rey Hill PAC [PHYSICIAN CLINICAL BUSINESS ANALYST] - 2 Weeks Patient Instructions/Handouts: Knee Replacement (DC) Activity/Diet/Wound Care/Special Instructions: Orthopedic Discharge Instructions: 1. Wound care and infection precautions, keep incision dry and covered while showering, no lotions, creams, moisturizers. No soaking, pools, hot tubs. Do not scrub over incision. 2. Weight-bear as tolerated with walker / cane until follow-up. 3. Ice and elevate when necessary. Do not exceed 20 minutes per hour with ice pack. 4. Utilize compression sleeve until seen at first follow up appointment. 5. Pain meds and anticoagulants per prescription. 6. Pain medication has potential to cause constipation. Increase oral fluid and fiber intake. Contact primary care provider if you have not had a bowel movement within 48 hours after discharge. 7. No anti-inflammatory medication until discussed at first post operative visit, this including Motrin, Aleve, Mobic, Diclofenac. 8. Follow up in office at 2 weeks postop with Gomez Hill PA-C / James Chicas PA-C 9. Follow up with your primary care doctor 7-10 days after discharge. 10. Contact [facility] with any questions, . Keep incision clean, dry, intact. While showering, cover silver foam dressing was Saran wrap. Silver foam dressing may be removed in 7 days, 05/18/2022. Discharge Disposition: HOME WITH HOME HEALTH SERVICES
--- NOTE | 2022-05-12 11:06 | P.PN ---
Subjective Progress Note Date: 05/12/22 Principal diagnosis: Right knee osteoarthritis Patient seen at bedside this morning resting comfortably lying semirecumbent position. Patient says he got up with physical therapy earlier this morning he walked up-and-down the iniguez and up-and-down steps. Patient currently says his pain as 7/10. Patient says he has urinated since surgery yesterday. Patient says he has had a small bowel movement. Patient says he does have a walker for home. Patient denies chest pain, fever, shortness breath, nausea, lying, change in vision, loss of bladder control. Objective - Vital Signs Vital signs: Vital Signs Temp 98.1 F 05/12/22 07:23 Pulse 65 05/12/22 07:23 Resp 16 05/12/22 07:23 BP 137/70 05/12/22 07:23 Pulse Ox 94 L 05/12/22 07:23 FiO2 Intake & Output 05/11/22 05/12/22 05/12/22 18:59 06:59 18:59 Intake Total 1750 960 Output Total 145 1235 300 Balance 1605 -275 -300 Weight 90.2 kg Intake: IV 1750 Intake, IV Titration 960 Amount Lactated Ringers 1,000 ml 960 @ 80 mls/hr IV .[id number] [facility] Rx#:[id number] Output: Urine 100 1235 300 Straight 700 Estimated Blood Loss 45 - Exam Right knee: Incision is clean, dry, and intact. The silver foam dressing is in good condition. There is minimal soft tissue swelling and ecchymosis surrounding the medial and lateral aspects of the incision. Calf is soft, no tenderness with palpation. Plantar flexion, dorsiflexion, EHL, FHL are intact. Sensory exam to light touch throughout the extremity is intact, dorsal pedis pulses 2+. - Labs CBC & Chem 7: 05/12/22 05:42 Labs: Abnormal Lab Results - Last 24 Hours (Table) 05/12/22 Range/Units 05:42 RBC 3.85 L (4.40-5.60) X 10*6/uL Hgb 12.4 L (13.0-17.0) g/dL Hct 35.5 L (39.6-50.0) % MCH 32.2 H (27.0-32.0) pg Eosinophils # 0.02 L (0.04-0.35) X 10*3/uL Assessment and Plan Assessment: 1. Right knee osteoarthritis Postoperative day #1 status post right total knee arthroplasty Plan: 1. Right knee osteoarthritis - right total knee arthroplasty from yesterday, 05/11/2022. Patient stable at bedside this morning. Discharge home today with health services. 2. Appreciate medical management 3. Pain management - [place]; Dilaudid 4. DVT prophylaxis - Lovenox in hospital. Going home with aspirin 81 mg twice a day 30 days 5. GI prophylaxis - senna in hospital. Going home with Colace 6. PT/OT - weightbearing as tolerated with walker 7. Encourage incentive spirometer use 8. Discharge planning - home with health services today Time with Patient: Less than 30
[2022-05-12] MEDS: amLODIPine 10 MG TAB PO SCH (11:33)
[2022-05-12] MEDS: TAMSULOSIN 0.4 MG CAP.ER.24H PO SCH (11:33)
--- NOTE | 2022-05-12 11:37 | P.PN ---
Subjective Progress Note Date: 05/12/22 Principal diagnosis: med management Subjective: Patient seen and examined at bedside. No acute events overnight. He claims that he has very minimal pain in his right knee. He is able to transfer himself out of the bed and able to walk a few steps using a walker. Denies any urinary or bowel complaints. He denies any nausea, vomiting, abdominal pain, chest pain, shortness of breath, diarrhea, or constipation. Pertinent positives and negatives as discussed above, a complete review of systems was performed and all other systems are negative. Vitals Signs Reviewed. General: nontoxic, no distress, appears at stated age Derm: warm, dry, right knee dressing clean dry and intact Head: atraumatic, normocephalic, symmetric Eyes: EOMI, no lid lag, anicteric sclera Mouth: no lip lesion, mucus membranes moist Cardiovascular: S1S2 reg, no murmur Lungs: CTA bilateral, no rhonchi, no rales , no accessory muscle use Abdominal: soft, nontender to palpation, no guarding, no appreciable organomegaly Ext: no gross muscle atrophy, no edema, no contractures Neuro: CN II-XI grossly intact, no focal neuro deficits Psych: Alert, oriented, appropriate affect Assessment and Plan: Hypertension Hyperlipidemia GERD BPH - Continue home medications Osteoarthritis Status post right total knee arthroplasty -Management per primary admitting orthopedic surgery team including DVT prophylaxis, pain management, wound/dressing care, weightbearing, and PT/OT Patient is medically optimized for discharge home. Thank you for allowing us to participate in the care of this pleasant patient. Do not hesitate to contact us with questions. Someone can be reached from the [facility] hospitalist group all hours of the day at [phone] or via [employer] [place]. Objective - Vital Signs Vital signs: Vital Signs Temp 98.1 F 05/12/22 07:23 Pulse 65 05/12/22 07:23 Resp 16 05/12/22 07:23 BP 137/70 05/12/22 07:23 Pulse Ox 94 L 05/12/22 07:23 FiO2 Intake & Output 05/11/22 05/12/22 05/12/22 18:59 06:59 18:59 Intake Total 1750 960 Output Total 145 1235 300 Balance 1605 -275 -300 Weight 90.2 kg Intake: IV 1750 Intake, IV Titration 960 Amount Lactated Ringers 1,000 ml 960 @ 80 mls/hr IV .[id number] [facility] Rx#:[id number] Output: Urine 100 1235 300 Straight 700 Estimated Blood Loss 45 - Labs CBC & Chem 7: 05/12/22 05:42 Labs: Abnormal Lab Results - Last 24 Hours (Table) 05/12/22 Range/Units 05:42 RBC 3.85 L (4.40-5.60) X 10*6/uL Hgb 12.4 L (13.0-17.0) g/dL Hct 35.5 L (39.6-50.0) % MCH 32.2 H (27.0-32.0) pg Eosinophils # 0.02 L (0.04-0.35) X 10*3/uL
== END 2022-05-12 13:37 | disposition home health service (06) ==
LOC: OR 05:55 → 4SSUR 09:18 → OR 05-12 07:16 → 4SSUR 05-12 07:16
PROVIDERS: ADMIT Orthopaedic Surgery; ATTEND Orthopaedic Surgery
DX: M17.11 Unilateral primary osteoarthritis, right knee (principal); J45.20 Mild intermittent asthma, uncomplicated; I10 Essential (primary) hypertension; K21.9 Gastro-esophageal reflux disease without esophagitis; N40.0 Benign prostatic hyperplasia without lower urinary tract symptoms; E78.00 Pure hypercholesterolemia, unspecified; N52.9 Male erectile dysfunction, unspecified; E03.9 Hypothyroidism, unspecified; I45.10 Unspecified right bundle-branch block; Z79.51 Long term (current) use of inhaled steroids; Z79.899 Other long term (current) drug therapy; Z91.041 Radiographic dye allergy status; Z96.652 Presence of left artificial knee joint; Z87.442 Personal history of urinary calculi; Z90.49 Acquired absence of other specified parts of digestive tract; Z98.890 Other specified postprocedural states
CPT/HCPCS: 97161; 64999; 64448; 76942; 85025; 88300; 73560; 27447; G0378; C1776; C1713 ×2; C1751; J2250; J0330; J2270; J1100; J2710; J0690 ×2; J2405; J3010; J1650 ×2; J1170 ×3; J2795 ×2; J1885; J2370; J2704; J2001

== ENCOUNTER → 2022-12-21 | Outpatient (CLI) | payer MEDICARE, MEDICAID ==
[2022-12-21 16:05] LABS: ALT 21 U/L (10-49); AST 21 U/L (14-35); Albumin 4.8 d/dL (3.8-4.9); Albumin/Globulin Ratio 1.71 Ratio (1.60-3.17); Alkaline Phosphatase 67 U/L (41-126); BUN/Creat Ratio 15.69 Ratio (12.00-20.00); Blood Urea Nitrogen 20.4 mg/dL (9.0-27.0); Calcium 10.1 mg/dL (8.7-10.3); Carbon Dioxide 23.9 mmol/L (21.6-31.8); Chloride 106 mmol/L (96-109); Globulin 2.8 d/dL (1.6-3.3); Glucose 98 mg/dL (70-110); Potassium 4.2 mmol/L (3.5-5.5); Sodium 144 mmol/L (135-145); T4, Free (Free Thyroxine) 1.09 ng/dL (0.80-1.80); Total Bilirubin 0.8 mg/dL (0.3-1.2); Total Protein 7.6 d/dL (6.2-8.2)
[2022-12-21 16:14] LABS: Basophils # (A) 0.05 X 10*3/uL (0.00-0.10); Basophils % (A) 0.7 %; Eosinophils # (A) 0.23 X 10*3/uL (0.04-0.35); Eosinophils % (A) 3.4 %; HCT 42.1 % (39.6-50.0); Lymphocytes # (A) 2.63 X 10*3/uL (0.90-5.00); MCH 31.7 pg (27.0-32.0); MCHC 33.3 d/dL (32.0-37.0); MCV 95.5 FL (80.0-97.0); Mean Platelet Volume 11.4 FL (9.5-12.2); Monocytes # (A) 0.51 X 10*3/uL (0.20-1.00); Monocytes % (A) 7.6 %; NRBC Per 100 WBC 0 X 10*3/uL (0.00-0.01); Neutrophils # (A) 3.31 X 10*3/uL (1.80-7.70); Neutrophils % (A) 49.2 %; Platelet Count 235 X 10*3/uL (140-440); RBC 4.41 X 10*6/uL (4.40-5.60); RDW 13.6 % (11.5-14.5); WBC 6.74 X 10*3/uL (4.50-10.00)
== END | disposition home or self-care (01) ==
LOC: LABWHC1 11:40
PROVIDERS: ATTEND Internal Medicine
DX: Z00.00 Encounter for general adult medical examination without abnormal findings (principal); I10 Essential (primary) hypertension; E78.5 Hyperlipidemia, unspecified; R53.83 Other fatigue
CPT/HCPCS: 36415; 80053; 82306; 82607; 83036; 84153; 84403; 84439; 85025

== ENCOUNTER → 2024-01-25 | Outpatient (CLI) | payer MEDICARE, MEDICAID ==
[2024-01-25 18:59] LABS: Basophils # (A) 0.04 X 10*3/uL (0.00-0.10); Basophils % (A) 0.5 %; Eosinophils # (A) 0.17 X 10*3/uL (0.04-0.35); Eosinophils % (A) 2.1 %; HCT 42.4 % (39.6-50.0); HGB 14.7 g/dL (13.0-17.0); Lymphocytes # (A) 3.23 X 10*3/uL (0.90-5.00); Lymphocytes % (A) 40.1 %; MCH 31.5 pg (27.0-32.0); MCHC 34.7 g/dL (32.0-37.0); Mean Platelet Volume 10.6 FL (9.5-12.2); Monocytes # (A) 0.56 X 10*3/uL (0.20-1.00); NRBC Per 100 WBC 0 X 10*3/uL (0.00-0.01); Neutrophils # (A) 4.04 X 10*3/uL (1.80-7.70); Neutrophils % (A) 50.2 %; Platelet Count 241 X 10*3/uL (140-440); RBC 4.66 X 10*6/uL (4.40-5.60); RDW 13.3 % (11.5-14.5); WBC 8.05 X 10*3/uL (4.50-10.00)
[2024-01-25 20:55] LABS: ALT 24 U/L (10-49); AST 22 U/L (14-35); Albumin 4.7 g/dL (3.8-4.9); Albumin/Globulin Ratio 1.57 Ratio (1.60-3.17); Alkaline Phosphatase 74 U/L (41-126); BUN/Creat Ratio 16.29 Ratio (12.00-20.00); Blood Urea Nitrogen 22.8 mg/dL (9.0-27.0); Carbon Dioxide 22.7 mmol/L (21.6-31.8); Chloride 104 mmol/L (96-109); Chol/HDL Ratio 2.84 Ratio; Glucose 100 mg/dL (70-110); Potassium 3.6 mmol/L (3.5-5.5); Prostate Specific Antigen 2.17 ng/mL (0.000-6.500); Sodium 141 mmol/L (135-145); T4, Free (Free Thyroxine) 1.17 ng/dL (0.80-1.80); Total Bilirubin 0.9 mg/dL (0.3-1.2); Total Protein 7.7 g/dL (6.2-8.2)
== END | disposition home or self-care (01) ==
LOC: LABWHC1 13:39
PROVIDERS: ATTEND Internal Medicine
DX: Z12.5 Encounter for screening for malignant neoplasm of prostate (principal); E78.5 Hyperlipidemia, unspecified; I10 Essential (primary) hypertension
CPT/HCPCS: 36415; 80053; 80061; 83036; 84153; 84439; 84443; 85025